=== PATIENT | male | born 1940 | race Caucasian/White ===

== ENCOUNTER → 2016-12-09 | Day surgery (SDC) | payer OTHER ==
[~2016-12-09] VITALS: Ht 170.2 cm; Wt 116.0 kg
[~2016-12-09] MED LIST: ACETAMINOPHEN 325 MG TAB PO PRN; ASPI81TA28 PO; ATOR-24 PO; ATROPINE SULFATE 0.1 MG/ML 5ML SYR IV PRN; CYCL10TA6 PO; DC ALL ANTICOAGULANTS ONE; ELAVIL 25 MG PO; FENO134C2 PO; FENTANYL CITRATE INJ 50 MCG/1 ML 2 ML VIAL ONE; FINA5TAB PO; FLUT0.15 NAE; GABA-113 PO; GLC/500 PO; GLYB5TAB8 PO; HEPARIN SOD (PORCINE) 1000 UNIT/ML 10 ML VIAL ONE; LEVO75TA5 PO; MAGN400T6 PO; MELO7.5T5 PO; METO50TA7 PO; MIDAZOLAM HCL 1 MG/ML 2ML VIAL ONE; NITROGLYCERIN/D5W 100MCG/ML 20ML SYR ONE; NiCARDipine HCL INJ 2.5 MG/ML 10 ML AMP ONE; ONDANSETRON INJ 2 MG/ML 2 ML VIAL IV PRN; OXYC1TAB3 PO; PATIENT'S ALLERGY INFO NEEDS ENTERED SCH; PRLSR20 PO; SENN-61 PO; SODIUM CHLORIDE 0.9% 1000ML 1,000 ML IV SCH; SODIUM CHLORIDE 0.9% 1000ML 250 ML IV PRN
[2016-12-09 07:17] VITALS: Ht 170.2 cm; Wt 116.0 kg
[2016-12-09 07:19] VITALS: BP 169/95; PULSE 79; TEMP 36.5; O2SAT 98
[2016-12-09 07:49] LABS: HEMATOCRIT 36.1 % (42-52); MEAN CELL VOLUME 106.8 fL (80-100); MEAN CORPUSCULAR HEMOGLOBIN 35.2 pg (25-34); RED BLOOD COUNT 3.38 M/uL (4.7-6.1); WHITE BLOOD COUNT 4.39 K/uL (4.8-10.8)
[2016-12-09 07:57] LABS: INR 1.1 (0.9-1.1); PROTHROMBIN TIME (PATIENT) 11.8 SECONDS (9.0-12.0)
[2016-12-09 08:02] LABS: BUN/CREATININE RATIO 26.7 (10-20); CALCIUM 9.2 mg/dl (8.5-10.1); CREATININE 0.92 mg/dl (0.60-1.40)
[2016-12-09 08:10] LABS: PLATELET COUNT 134 K/uL (130-400)
[2016-12-09 08:15] LABS: PLT ESTIMATE NORMAL
--- NOTE | 2016-12-09 09:26 | History & Physical Bridge Note ---
H&P Re-Evaluation Bridge Note: I have examined the patient, reviewed the History & Physical and in the interval since the performance of the History & Physical I have noted the following changes of clinical significance: No changes noted
--- NOTE | 2016-12-09 09:31 | Cardiac Catheterization ---
Procedure Note Procedure Date Dec 09, 2016. 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 Normal LV function. 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 ACC Data Cardiac Status Clinical evaluation leading to the procedure CAD Presntation: No Sxs, no angina, Positive Stress Test Anginal Classification: No symptoms Cardiogenic Shock w/in 24Hrs: No Cardiac Arrest w/in 24Hrs: No Imaging studies past 6 months: Yes Stress studies past 6 months: Yes Standard Exercise Stress Test: No Stress Echocardiogram: No Stress Testing w/SPECT MPI: Yes - Positive Cardiac CTA: No Coronary Anatomy Dominant: Left Left Main (% Stenosis): Normal LAD (% Stenosis): Normal Circumflex (% Stenosis): Normal RCA (% Stenosis): Normal Left Ventricular Angiography EF (%): 55 Mitral Regurgitation: None Diagnostic Status: Elective Closure Device Percutaneous Entry Location: Femoral Closure Device: Mynx Recommendations: management recommendations (Cleared for orthopedic surgery)
--- NOTE | 2016-12-09 09:42 | Discharge Instructions ---
Discharge Instructions Procedure Procedure Date: Dec 09, 2016. Reason for Visit: Abnormal Stress Test Aida To Do. Discharge Discharge Date: Dec 09, 2016. Discharge Diagnosis: Normal Cath Last Recorded Wt (Kilograms): 116 Anesthesia Post Anesthesia Instructions: If you have had General Anesthesia or IV Sedation: * Do not drive today. * Resume driving when surgeon permits. * Do not make important decisions or sign legal documents today. * Call surgeon for: 1. Temperature elevations greater than 101 degrees F. 2. Uncontrollable pain. 3. Excessive bleeding. 4. Persistent nausea and vomiting. 5. Medication intolerance (nausea, vomiting or rash). * For nausea and vomiting use only clear liquids such as: tea, soda, bouillon until nausea subsides, then gradually increase diet as tolerated. * If you have any concerns or questions, call your surgeon's office. If physician is unavailable and it is an emergency, call 911 or go to the nearest emergency room. Instructions Activity Recommendations: limitations Recommended Home Diet: resume previous diet Provider Instructions ACTIVITY RECOMMENDATIONS: It is common to feel weak and fatigue for a few days. * Do not drive or operate any motorized equipment for the next three days. * Limit stair usage (2 or 3 trips a day only) for the next three days. * Do not lift anything heavier than 10 pounds for the next three days. * Do not engage in vigorous exercise or any sports for the next five days. * You may shower the day after your procedure, but do not immerse the area for three days. Cleanse the site gently with soap and water. SPECIAL CARE INSTRUCTIONS: * You may replace the pressure dressing or band-aid the morning after the procedure. * After your procedure, it is normal to have a small bruise or small lump at the site. Examine your site daily for any change in the bruise or lump, redness, swelling, drainage or numbness. Notify your doctor if any change. BLEEDING: * If there is a small amount of bleeding at the site, lie down and apply firm pressure with a clean cloth for ten minutes. When the bleeding stops, lie quietly keeping the procedure limb straight for six hours. Notify your doctor as soon as possible. * If the bleeding does not stop after ten minutes or if there is a large amount of bleeding or spurting, call 911 immediately. Continue to lie down and hold firm pressure until help arrives. SKIN IRRITATION: * You may experience some redness and/or swelling in the area where radiation was administered. If any skin irritation occurs, please contact your family physician. FOLLOW UP VISIT: Keep any scheduled doctor appointments. Follow Up Follow-up with: Dr. Beard as scheduled Christophe Rogers Recommendations: Call your doctor if: * Temperature above 101 degrees * Pain not relieved by pain medicine ordered * There is increased drainage or redness from any incision * You have any unanswered questions or concerns. Your Doctors Instructions noted above were prepared by provider Govind Parra. Patient Signature Section: Patient Instructions Signature Page Zebubeth Garzon Patient (or Guardian) Signature/Date: I have read and understand the instructions given to me by my caregivers. Caregiver/RN/Doctor Signature/Date: The above-named patient and/or guardian has received patient instructions on this date. + Original Patient Signature Page (only) stays with chart. Please make copy for patient.
--- NOTE | 2016-12-09 11:03 | CARDIAC CATH REPORT ---
PROCEDURES: 1. Left heart catheterization. 2. Coronary angiography. 3. Left ventriculography. HISTORY OF PRESENT ILLNESS: This is a 76-year-old male patient who was evaluated for preoperative clearance regarding total knee replacement. The patient had preoperative testing including an echocardiogram and pharmacologic nuclear stress test. 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 It was decided that he would be best evaluated with the cardiac catheterization. PROCEDURE SUMMARY: After informed consent was obtained, the patient was taken to the cardiac catheterization lab, where he was prepped and draped in the usual manner. A right transradial approach was attempted; however, access of the artery could not be obtained. We then switched to a right transfemoral approach and successfully gained access to the artery, where the heart catheterization was completed. Preformed 5-[place] diagnostic catheter was utilized for the coronary angiograms. A 5-[place] Citizen pigtail catheter was utilized to try to cross the aortic valve and to perform a left ventriculogram; however, the pigtail catheter would not cross the valve and therefore, multipurpose catheter was utilized to cross the valve and to perform pressure measurements as well as left ventriculogram. 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 CORONARY ANGIOGRAPHY: Left coronary system is hyperdominant. The left main trunk is smooth in appearance, widely patent, and within normal limits. The LAD gives off 2 high diagonal branches. The LAD system is widely patent. The left circumflex artery is large and hyperdominant supplying the posterior septum. The left circumflex artery is widely patent. The right coronary artery is small and nondominant. The right coronary artery is widely patent. LEFT VENTRICULOGRAM: Due to utilizing a multipurpose catheter, the left ventricle was minimally filled with dye, but it appears that overall left ventricular systolic function is preserved. SUMMARY: The patient has widely patent and normal coronary anatomy. A limited left ventriculogram suggest normal LV function. RECOMMENDATIONS: The patient may proceed to surgery with an acceptable low risk of cardiovascular event. He should have followup with our cardiology group for further evaluation of his ejection fraction in the future.
[2016-12-09 13:15] VITALS: BP 142/88; PULSE 84; O2SAT 97
== END | disposition home or self-care (01) ==
LOC: C.CATH 06:57
PROVIDERS: ATTEND Internal Medicine Interventional Cardiology
DX: R94.39 Abnormal result of other cardiovascular function study (principal); E78.5 Hyperlipidemia, unspecified; E11.9 Type 2 diabetes mellitus without complications; I10 Essential (primary) hypertension; I51.9 Heart disease, unspecified; R06.09 Other forms of dyspnea; Z01.810 Encounter for preprocedural cardiovascular examination; Z90.49 Acquired absence of other specified parts of digestive tract; Z96.652 Presence of left artificial knee joint; Z90.89 Acquired absence of other organs; Z98.890 Other specified postprocedural states; Z82.49 Family history of ischemic heart disease and other diseases of the circulatory system; Z83.3 Family history of diabetes mellitus; Z80.0 Family history of malignant neoplasm of digestive organs

== ENCOUNTER 2019-01-28 18:57 | Inpatient (IN) ==
[2019-01-28] MEDS ORDERED: SODIUM CHLORIDE 0.9% 1000ML 1,000 ML IV ONE ×3 (19:23→21:13)
[2019-01-28] MEDS ORDERED: ACETAMINOPHEN 325 MG TAB PO STA (19:23)
[2019-01-28 19:50] LABS: Mean Corpuscular Hgb Conc 33.3 g/dL (32-36); Nucleated RBC # (auto) 0.47 K/uL (0-0); Nucleated RBC % (auto) 1.6 %
[2019-01-28 19:54] LABS: iSTAT Hemoglobin 7.8 g/dl (14.0-18.0); iSTAT Ionized Calcium 1.23 mmol/l (1.12-1.32); iSTAT Potassium 3.7 mEq/L (3.3-5.0)
[2019-01-28 20:03] LABS: INR 1.5 (0.9-1.1); Partial Thromboplastin Ratio 1.1; Partial Thromboplastin Time 29.7 Seconds (21.0-31.0); Prothrombin Time 14.5 Seconds (9.0-12.0)
--- NOTE | 2019-01-28 20:05 | XRay Report ---
XR chest 1V portable CLINICAL HISTORY: Sepsis. COMPARISON STUDY: No previous studies for comparison. FINDINGS: Surgical clips project over the lower neck/upper mediastinum. Note is made of moderate card iomegaly without evidence for pulmonary edema. There is no consolidation to suggest pneumonia. There is a possible hiatal hernia. Mild upper mediastinal fullness is probably due to vessels. Linear right midlung opacity suggests atelectasis IMPRESSION: 1. No acute cardiopulmonary findings. 2. Moderate cardiomegaly. 3. Possible hiatal hernia. Electronically signed by: Patrice Wilburn M.D. 01/28/2019 8:03 PM
[2019-01-28 20:07] LABS: Albumin Level 2.6 gm/dl (3.4-5.0); BUN Creatinine Ratio 11.7 (10-20); Calcium 8.9 mg/dl (8.5-10.1); Est GFR (African American) 74.7; Est GFR (Non-African American) 64.4; Potassium 3.7 mmol/L (3.5-5.1)
[2019-01-28 20:10] LABS: Albumin Globulin Ratio 0.5 (0.9-2); Bilirubin,Total 0.5 mg/dl (0.2-1); Globulin 5.1 gm/dl (2.5-4.0); Total Protein 7.7 gm/dl (6.4-8.2)
[2019-01-28 20:36] LABS: Appearance Urine Clear (Clear); Bacteria Urine Automated Negative (Negative); Bilirubin Urine Negative (Negative); Blood Urine 3+ (Negative); Color Urine Dark Yellow; Glucose Urine UA Negative (Negative); Ketones Urine Negative (Negative); Leukocyte Esterase Urine Negative (Negative); Nitrite Urine Negative (Negative); Protein Urine Negative (Negative); RBC Urine Automated >30 /hpf (0-4); Specific Gravity Urine 1.023 (1.000-1.030); Urobilinogen Urine Negative (Negative)
[2019-01-28 20:50] LABS: Hematocrit (blood only) 24.9 % (42-52); Hemoglobin 8.3 g/dL (14.0-18.0); Mean Corpuscular Volume 85.6 fL (80-100); Platelet Count 75 K/uL (130-400); RDW Coefficient of Variation 16.5 % (11.5-14.5); RDW Standard Deviation 51.6 fL (36.4-46.3); Red Blood Count 2.91 M/uL (4.7-6.1); White Blood Count 29.86 K/uL (4.8-10.8)
[2019-01-28] MEDS ORDERED: PIPERACILLIN/TAZOBACTAM 4.5 GM/120 ML BAG IV ONE (21:05)
[2019-01-28] MEDS ORDERED: PIPERACILL/TAZOBAC CONSULT ACTIVE PRN (21:05)
[2019-01-28] MEDS ORDERED: VANCOMYCIN CONSULT ACTIVE PRN (21:13)
[2019-01-28] MEDS ORDERED: VANCOMYCIN HCL 2,750 MG in SODIUM CHLORIDE 0.9% 500 ML IV ONE (21:13)
[2019-01-28 21:20] LABS: ALC (manual) 12.42 K/uL (1.2-3.4); Blast # (manual) 1.85 K/uL (0-0); Blast Cells % (manual) 6.2 %; Dohle Bodies 1+; Giant Platelets 1+; Lymphocytes # (manual) 12.42 K/uL (1.2-3.4); Lymphocytes % (manual) 41.6 %; Metamyelocytes # (manual) 0.27 K/uL (0-0); Metamyelocytes % (manual) 0.9 %; Monocytes # (manual) 4.48 K/uL (0.11-0.59); Neutrophils % (manual) 36.3 %
--- NOTE | 2019-01-28 21:24 | CT Scan Report ---
CT OF THE ABDOMEN AND PELVIS WITH CONTRAST CLINICAL HISTORY: Abdominal pain and fever. COMPARISON STUDY: None. TECHNIQUE: Following IV administration of 94 mL of Optiray-320, axial images of the abdomen and pelvi s were obtained from the lung bases to the proximal femurs. Images were reviewed in the axial, sagitt al, and coronal planes. IV contrast was administered without complication. Automated exposure contro l was utilized for the study. A dose lowering technique was utilized adhering to the principles of A ANGEL. CT DOSE: 1470.84 mGy.cm FINDINGS: Visualized portions of the lower chest demonstrate a trace left pleural effusion. There is a small pericardial effusion. A small hiatal hernia is noted. There is no biliary ductal dilatation s tatus post cholecystectomy. There is apparent wall thickening of the common bile duct with infiltrati on within the michael hepatis. The spleen is moderately enlarged. A 4 cm subcapsular wedge-shaped hypod ensity suggests a splenic infarct. There is trace perisplenic ascites. The adrenal glands and pancrea s are unremarkable. There is no pancreatic ductal dilatation. Note is made of a 4.1 x 3.9 cm solid-ap pearing mass within the lower pole of the left kidney. There is a suspected subcentimeter cyst arisin g from the upper pole of the right kidney. There is no evidence for a bowel obstruction. An enlarged left external iliac lymph node measures 5.4 x 3.5 cm. There is adjacent infiltration. There is a mild ly enlarged right external iliac lymph node. Prominent left inguinal lymph nodes are noted. Raya bal loon is within the prostate. There is increased density of visualized skeletal structures. Note is ma de of irregularity of the inferior endplate of T12 and superior endplate of L1 with erosions. There i s a probable associated 2 x 1.6 x 1.1 cm peripherally enhancing fluid collection within the right ant erior epidural space. This may reflect an epidural abscess. Multilevel degenerative changes within agustina mbar spine are noted. These are most throughout the L4-L5. Note is also made of a gas and fluid conta ining right paracentral abnormality at the L3-L4 level. No pneumatosis, free air or portal venous gas is present. IMPRESSION: 1. Endplate irregularity with erosions centered on the T12-L1 disc. This raises the possibility of os teomyelitis/discitis. 2 cm rim-enhancing fluid collection within the right anterior epidural space at this level may reflect an epidural abscess. An MRI of the lumbar spine with and without contrast to include the lower thoracic spine is recommended. Discussed with Dr. Cross at time of dictation. 2. Gas and fluid containing right paracentral abnormality at the L3-L4 level which may reflect a disc herniation or additional abscess. This can be assessed at time of MRI. Severe multilevel degenerativ e changes within the lumbar spine. 3. Small pericardial effusion. Trace left pleural effusion. 4. 4 cm lesion arising from the lower pole of the left kidney suggestive of renal cell carcinoma. A h yperdense cyst could appear similar but is considered less likely. This could likely be confirmed wit h renal ultrasound. 5. Enlarged bilateral iliac lymph nodes, including a 5.4 x 3.5 cm left external iliac node. These are nonspecific given adjacent infiltration and may be reactive however the size of this lymph node rais es the possibility of a lymphoproliferative process or metastatic disease. 6. 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 7. Raya balloon inflated within the prostate. The Raya should be repositioned. 8. Apparent wall thickening of the common bile duct with adjacent infiltration. The findings could be correlated with liver function tests to exclude cholangitis. 9. Increased density of visualized skeletal structures, a nonspecific finding. Electronically signed by: Patrice Wilburn M.D. 01/28/2019 9:22 PM
--- NOTE | 2019-01-28 23:56 | Emergency Department Note ---
Entered by Batsheva Celeste acting as a scribe for Dean Cross DO History of Present Illness General Chief complaint: Fever Stated complaint: FEVER, SWEATING, CHILLS, SEPSIS DX ON 01/14 Source: patient History of Present Illness Provider complaint: fever Onset (ago): day(s) (several ) Location: head Radiation: non-radiation Pain Consistency: + intermittent Maximum Pain Intensity: 5 Associated symptoms: + fever/chills (+chills), + nausea/vomiting and + other (+burning during urination, +abdominal pain) Treatments prior to arrival: other (Tylenol) The patient is a 79 year old male who presents to the Emergency Room with complaints of intermittent fever. He states that he has had a fever above 100.4 degrees that has been on and off for the past several days. He states that he has been having chills, nausea, and vomiting. The patient states that he has had lower abdominal pain that started yesterday The patient notes that he has been experiencing burning during urination, but denies any pain during urination. The patients states that he has bone marrow cancer and is not currently on chemotherapy. She states that he got his last shot on . The patient states that he has been urinating less frequently and his last bowel movement was this morning. The patient notes that he had Tylenol this morning. Home Medications Home Medications Medication Instructions Recorded Confirmed Type albuterol sulfate [ProAir HFA] 2 puff INHALATION Q4 PRN 01/28/19 01/28/19 History amitriptyline 25 mg PO HS 01/28/19 01/28/19 History amlodipine 10 mg PO DAILY 01/28/19 01/28/19 History atorvastatin 40 mg PO DAILY 01/28/19 01/28/19 History azacitidine [Vidaza] 75 mg SUBCUT UD 01/28/19 01/28/19 History budesonide 2 spray INTRANASAL QAM 01/28/19 01/28/19 History cyanocobalamin (vitamin B-12) 1,000 mcg PO DAILY 01/28/19 01/28/19 History [Vitamin B-12] cyclobenzaprine 10 mg PO TID PRN 01/28/19 01/28/19 History fenofibrate micronized 134 mg PO DAILY 01/28/19 01/28/19 History finasteride 5 mg PO DAILY 01/28/19 01/28/19 History furosemide [Lasix] 20 mg PO QAM 01/28/19 01/28/19 History gabapentin 300 mg PO TID 01/28/19 01/28/19 History glyburide 5 mg PO QDB 01/28/19 01/28/19 History levofloxacin 750 mg PO DAILY 01/28/19 01/28/19 History levothyroxine 100 mcg PO DAILY 01/28/19 01/28/19 History magnesium oxide 400 mg PO DAILY 01/28/19 01/28/19 History metformin 500 mg PO BIDM 01/28/19 01/28/19 History metoprolol succinate 50 mg PO HS 01/28/19 01/28/19 History metoprolol succinate 100 mg PO QAM 01/28/19 01/28/19 History omeprazole 20 mg PO TID 01/28/19 01/28/19 History ondansetron HCl [Zofran] 8 mg PO Q8 PRN 01/28/19 01/28/19 History oxycodone 5 mg PO Q6 PRN 01/28/19 01/28/19 History oxycodone 15 mg PO Q12H PRN 01/28/19 01/28/19 History potassium chloride 10 meq PO DAILY 01/28/19 01/28/19 History prochlorperazine maleate 10 mg PO TID PRN 01/28/19 01/28/19 History sennosides [senna] 17.2 mg PO QPM PRN 01/28/19 01/28/19 History sertraline 100 mg PO DAILY 01/28/19 01/28/19 History tamsulosin [Flomax] 0.8 mg PO DAILY 01/28/19 01/28/19 History Allergies Allergy/AdvReac Type Severity Reaction Status Date / Time No Known Allergies Allergy Verified 01/28/19 20:30 Past Med/Surg History Medical History Hyperlipidemia BPH (benign prostatic hyperplasia) Type II diabetes mellitus GERD (gastroesophageal reflux disease) Hyperthyroidism Social History Feels Safe at Home: Yes Smoking Status: Former smoker Review of Systems See HPI for pertinent positives & negatives. and A total of 10 systems reviewed and were otherwise negative Physical Exam Vital Signs Vital Signs - 24 hr 01/28/19 19:06 01/28/19 20:07 01/28/19 20:09 Temperature 39.2 C H Temperature Source Oral Sepsis Recent Fever Within 48 Hours Yes Sepsis New/Unexplained Change in Mental Status No Sepsis Action Taken by Nursing No Action Required Pulse Rate 71 109 H 115 H Pulse Rate [Left Apical] Pulse Rate from SpO2 Sensor 117 H 116 H Respiratory Rate 19 29 H 27 H Respiratory Effort / Characteristics Non-Labored Spontaneous Respiratory Depth Normal Respiratory Pattern Regular Blood Pressure 136/75 114/80 Blood Pressure [Left Arm] Blood Pressure Mean 95 91 Blood Pressure Mean [Left Arm] Blood Pressure Position Sitting Blood Pressure Position [Left Arm] Pulse Oximetry 97 91 92 Oxygen Delivery Method Room Air Oxygen Flow Rate 01/28/19 20:12 01/28/19 20:30 01/28/19 20:56 Temperature Temperature Source Sepsis Recent Fever Within 48 Hours Sepsis New/Unexplained Change in Mental Status Sepsis Action Taken by Nursing Pulse Rate 110 H Pulse Rate [Left Apical] 107 H Pulse Rate from SpO2 Sensor 112 H Respiratory Rate 28 H 18 Respiratory Effort / Characteristics Respiratory Depth Respiratory Pattern Blood Pressure Blood Pressure [Left Arm] 96/61 L Blood Pressure Mean Blood Pressure Mean [Left Arm] 72 Blood Pressure Position Blood Pressure Position [Left Arm] Pulse Oximetry 92 93 91 Oxygen Delivery Method Room Air Room Air Oxygen Flow Rate 01/28/19 21:00 01/28/19 21:01 01/28/19 21:04 Temperature 38.0 C H Temperature Source Oral Sepsis Recent Fever Within 48 Hours Sepsis New/Unexplained Change in Mental Status Sepsis Action Taken by Nursing Pulse Rate Pulse Rate [Left Apical] Pulse Rate from SpO2 Sensor 111 H 111 H Respiratory Rate 22 Respiratory Effort / Characteristics Respiratory Depth Respiratory Pattern Blood Pressure 122/85 Blood Pressure [Left Arm] Blood Pressure Mean 97 Blood Pressure Mean [Left Arm] Blood Pressure Position Blood Pressure Position [Left Arm] Pulse Oximetry 91 87 L 92 Oxygen Delivery Method Room Air Oxygen Flow Rate 01/28/19 21:20 01/28/19 21:30 01/28/19 21:31 Temperature Temperature Source Sepsis Recent Fever Within 48 Hours Sepsis New/Unexplained Change in Mental Status Sepsis Action Taken by Nursing Pulse Rate 104 H 101 H Pulse Rate [Left Apical] Pulse Rate from SpO2 Sensor 106 H 102 H Respiratory Rate 23 33 H Respiratory Effort / Characteristics Respiratory Depth Respiratory Pattern Blood Pressure 106/59 L Blood Pressure [Left Arm] Blood Pressure Mean 74 Blood Pressure Mean [Left Arm] Blood Pressure Position Blood Pressure Position [Left Arm] Pulse Oximetry 94 97 95 Oxygen Delivery Method Nasal Cannula Nasal Cannula Nasal Cannula Oxygen Flow Rate 2 2 2 01/28/19 21:32 01/28/19 22:00 01/28/19 22:02 Temperature Temperature Source Sepsis Recent Fever Within 48 Hours Sepsis New/Unexplained Change in Mental Status Sepsis Action Taken by Nursing Pulse Rate 94 H 108 H 109 H Pulse Rate [Left Apical] Pulse Rate from SpO2 Sensor 102 H 109 H 102 H Respiratory Rate 35 H 28 H 23 Respiratory Effort / Characteristics Respiratory Depth Respiratory Pattern Blood Pressure Blood Pressure [Left Arm] Blood Pressure Mean Blood Pressure Mean [Left Arm] Blood Pressure Position Blood Pressure Position [Left Arm] Pulse Oximetry 96 93 94 Oxygen Delivery Method Oxygen Flow Rate 01/28/19 22:08 01/28/19 23:00 Temperature Temperature Source Sepsis Recent Fever Within 48 Hours Sepsis New/Unexplained Change in Mental Status Sepsis Action Taken by Nursing Pulse Rate 102 H Pulse Rate [Left Apical] 78 Pulse Rate from SpO2 Sensor 104 H Respiratory Rate 27 H 16 Respiratory Effort / Characteristics Non-Labored Respiratory Depth Normal Respiratory Pattern Regular Blood Pressure 117/63 Blood Pressure [Left Arm] 147/72 H Blood Pressure Mean 81 Blood Pressure Mean [Left Arm] 97 Blood Pressure Position Blood Pressure Position [Left Arm] Lying Pulse Oximetry 96 98 Oxygen Delivery Method Nasal Cannula Oxygen Flow Rate 2 GENERAL: alert, laying in bed, ill-appearing, well nourished, disheveled, non- toxic EYE EXAM: normal conjunctiva OROPHARYNX: no exudate, no erythema, lips, buccal mucosa, and tongue normal and mucous membranes are moist NECK: supple, no nuchal rigidity, no adenopathy, non-tender LUNGS: Clear to auscultation. Normal chest wall mechanics HEART: tachycardic, no murmurs, S1 normal and S2 normal ABDOMEN: abdomen soft, slightly distended, mild diffuse tenderness, normo-active bowel sounds, no masses, no rebound or guarding. BACK: Back is symmetrical on inspection no CVA tenderness. SKIN: no rashes and no bruising UPPER EXTREMITIES: upper extremities are grossly normal. LOWER EXTREMITIES: No pitting edema. NEURO EXAM: Normal sensorium, cranial nerves II-XII grossly intact, normal speech, no gross weakness of arms, no gross weakness of legs. No drift. Finger to nose intact. Gross sensation intact. Course 1912: The patient was evaluated in room A10, and a complete history and physical examination were performed. 2152: I reevaluated the patient and updated him on his results. 2204: I reviewed the patient's case with Dr. Yesenia Acharya. He will evaluate the patient for further management. Consultations Consultation #1: Dr. Yesenia Acharya Time: 22:05 Administered Medications Vancomycin HCl 2,750 mg/ (Sodium Chloride) 555 mls @ 200 mls/hr IV NOW ONE; Protocol Stop: 01/28/19 23:59 Last Admin: 01/28/19 22:09 Dose: 200 mls/hr Documented by: [id number] Discontinued Medications Acetaminophen (Tylenol) 650 mg PO NOW STA Stop: 01/28/19 19:24 Last Admin: 01/28/19 19:56 Dose: 650 mg Documented by: [id number] Sodium Chloride (Nss 1000ml) 1,000 mls @ 999 mls/hr IV .Q1H1M ONE Stop: 01/28/19 20:23 Last Infusion: 01/28/19 20:47 Dose: 0 mls/hr Documented by: [id number] Admin: 01/28/19 19:44 Dose: 999 mls/hr Documented by: [id number] Piperacillin Sod/Tazobactam Sod (Zosyn) 4.5 gm in 120 mls @ 240 mls/hr IV NOW ONE Stop: 01/28/19 21:34 Last Infusion: 01/28/19 22:01 Dose: 0 mls/hr Documented by: [id number] Admin: 01/28/19 21:18 Dose: 240 mls/hr Documented by: [id number] Sodium Chloride (Nss 1000ml) 1,000 mls @ 999 mls/hr IV .Q1H1M ONE Stop: 01/28/19 22:05 Last Infusion: 01/28/19 21:45 Dose: 0 mls/hr Documented by: [id number] Admin: 01/28/19 21:12 Dose: 999 mls/hr Documented by: [id number] Sodium Chloride (Nss 1000ml) 1,000 mls @ 999 mls/hr IV .Q1H1M ONE Stop: 01/28/19 22:13 Last Admin: 01/28/19 22:09 Dose: 999 mls/hr Documented by: [id number] Medical Decision Making Differential Diagnosis Differential diagnosis: Etiologies such as sepsis, UTI, pneumonia, metabolic, electrolyte abnormalities, cardiac sources, intracerebral event, toxicologic, neurologic, as well as others were entertained. Medical Records Attestation: I reviewed the patient's medical records. Home Medications Current Medication List: was personally reviewed by me Laboratory Data Attestation: I reviewed the patient's lab results. Result diagrams: 01/28/19 19:30 01/28/19 19:30 Lab Results 01/28/19 01/28/19 01/28/19 Range/Units 19:30 19:30 19:30 WBC 29.86 H (4.8-10.8) K/uL RBC 2.91 L (4.7-6.1) M/uL Hgb 8.3 L (14.0-18.0) g/dL POC Hgb (14.0-18.0) g/dl Hct 24.9 L (42-52) % POC Hct (42-52) % MCV 85.6 (80-100) fL MCH 28.5 (25-34) pg MCHC 33.3 (32-36) g/dL RDW Std Deviation 51.6 H (36.4-46.3) fL RDW Coeff of Saad 16.5 H (11.5-14.5) % Plt Count 75 L (130-400) K/uL Absolute Nucleated RBC 0.47 H (0-0) K/uL Nucleated RBC % (auto) 1.6 % Neutrophils % (Manual) 36.3 % Lymphocytes % (Manual) 41.6 % Monocytes % (Manual) 15.0 % Metamyelocytes % (Man) 0.9 % Blast Cells % (Manual) 6.2 % Neutrophils # (Manual) 10.84 H (1.4-6.5) K/uL Total Absolute Neuts 10.84 H (1.4-6.5) K/uL Lymphocytes # (Manual) 12.42 H (1.2-3.4) K/uL Total Abs Lymphocytes 12.42 H (1.2-3.4) K/uL Monocytes # (Manual) 4.48 H (0.11-0.59) K/uL Metamyelocytes # (Man) 0.27 H (0-0) K/uL Blast Cells # (Man) 1.85 H (0-0) K/uL Dohle Bodies 1+ Giant Platelets 1+ PT 14.5 H (9.0-12.0) Seconds INR 1.5 H (0.9-1.1) APTT 29.7 (21.0-31.0) Seconds PTT Ratio 1.1 POC Sodium (135-144) mEq/L Sodium 137 (136-145) mmol/L POC Potassium (3.3-5.0) mEq/L Potassium 3.7 (3.5-5.1) mmol/L POC Chloride (101-112) mEq/L Chloride 105 (98-107) mmol/L Carbon Dioxide 23 (21-32) mmol/L POC Total CO2 (24-31) mEq/l Anion Gap 9.0 (3-11) POC Anion Gap (16-25) mmol/L POC BUN (7-18) mg/dl BUN 13 (7-18) mg/dl Creatinine 1.10 (0.6-1.4) mg/dl POC Creatinine (0.6-1.3) mg/dl Est Cr Clr Drug Dosing 68.0 ml/min Est GFR ( Amer) 74.7 Est GFR (Non-Af Amer) 64.4 BUN/Creatinine Ratio 11.7 (10-20) Glucose 168 H (70-99) mg/dl POC Glucose (other) (70-99) mg/dl POC Lactic Acid Ron (0.90-1.70) mmol/L Calcium 8.9 (8.5-10.1) mg/dl POC Ioniz Calcium Dario (1.12-1.32) mmol/l Total Bilirubin 0.5 (0.2-1) mg/dl AST 14 L (15-37) U/L ALT 16 (12-78) U/L Alkaline Phosphatase 47 (45-117) U/L Total Protein 7.7 (6.4-8.2) gm/dl Albumin 2.6 L (3.4-5.0) gm/dl Globulin 5.1 H (2.5-4.0) gm/dl Albumin/Globulin Ratio 0.5 L (0.9-2) Urine Color Urine Appearance (Clear) Urine pH (4.5-7.5) Ur Specific [place] (1.000-1.030) Urine Protein (Negative) Urine Glucose (UA) (Negative) Urine Ketones (Negative) Urine Blood (Negative) Urine Nitrite (Negative) Urine Bilirubin (Negative) Urine Urobilinogen (Negative) Ur Leukocyte Esterase (Negative) Urine WBC (Auto) (0-5) /hpf Urine RBC (Auto) (0-4) /hpf U Hyaline Cast (Auto) (0-5) /lpf U Epithel Cells (Auto) (0-5) /lpf Urine Bacteria (Auto) (Negative) Blood Type Antibody Screen 01/28/19 01/28/19 01/28/19 Range/Units 19:37 19:42 19:54 WBC (4.8-10.8) K/uL RBC (4.7-6.1) M/uL Hgb (14.0-18.0) g/dL POC Hgb 7.8 L (14.0-18.0) g/dl Hct (42-52) % POC Hct 23 L (42-52) % MCV (80-100) fL MCH (25-34) pg MCHC (32-36) g/dL RDW Std Deviation (36.4-46.3) fL RDW Coeff of Saad (11.5-14.5) % Plt Count (130-400) K/uL Absolute Nucleated RBC (0-0) K/uL Nucleated RBC % (auto) % Neutrophils % (Manual) % Lymphocytes % (Manual) % Monocytes % (Manual) % Metamyelocytes % (Man) % Blast Cells % (Manual) % Neutrophils # (Manual) (1.4-6.5) K/uL Total Absolute Neuts (1.4-6.5) K/uL Lymphocytes # (Manual) (1.2-3.4) K/uL Total Abs Lymphocytes (1.2-3.4) K/uL Monocytes # (Manual) (0.11-0.59) K/uL Metamyelocytes # (Man) (0-0) K/uL Blast Cells # (Man) (0-0) K/uL Dohle Bodies Giant Platelets PT (9.0-12.0) Seconds INR (0.9-1.1) APTT (21.0-31.0) Seconds PTT Ratio POC Sodium 138 (135-144) mEq/L Sodium (136-145) mmol/L POC Potassium 3.7 (3.3-5.0) mEq/L Potassium (3.5-5.1) mmol/L POC Chloride 102 (101-112) mEq/L Chloride (98-107) mmol/L Carbon Dioxide (21-32) mmol/L POC Total CO2 22 L (24-31) mEq/l Anion Gap (3-11) POC Anion Gap 18.0 (16-25) mmol/L POC BUN 12 (7-18) mg/dl BUN (7-18) mg/dl Creatinine (0.6-1.4) mg/dl POC Creatinine 1.0 (0.6-1.3) mg/dl Est Cr Clr Drug Dosing ml/min Est GFR ( Amer) Est GFR (Non-Af Amer) BUN/Creatinine Ratio (10-20) Glucose (70-99) mg/dl POC Glucose (other) 175 H (70-99) mg/dl POC Lactic Acid Ron 1.05 (0.90-1.70) mmol/L Calcium (8.5-10.1) mg/dl POC Ioniz Calcium Dario 1.23 (1.12-1.32) mmol/l Total Bilirubin (0.2-1) mg/dl AST (15-37) U/L ALT (12-78) U/L Alkaline Phosphatase (45-117) U/L Total Protein (6.4-8.2) gm/dl Albumin (3.4-5.0) gm/dl Globulin (2.5-4.0) gm/dl Albumin/Globulin Ratio (0.9-2) Urine Color Urine Appearance (Clear) Urine pH (4.5-7.5) Ur Specific [place] (1.000-1.030) Urine Protein (Negative) Urine Glucose (UA) (Negative) Urine Ketones (Negative) Urine Blood (Negative) Urine Nitrite (Negative) Urine Bilirubin (Negative) Urine Urobilinogen (Negative) Ur Leukocyte Esterase (Negative) Urine WBC (Auto) (0-5) /hpf Urine RBC (Auto) (0-4) /hpf U Hyaline Cast (Auto) (0-5) /lpf U Epithel Cells (Auto) (0-5) /lpf Urine Bacteria (Auto) (Negative) Blood Type A Positive Antibody Screen NEGATIVE 01/28/19 Range/Units 20:20 WBC (4.8-10.8) K/uL RBC (4.7-6.1) M/uL Hgb (14.0-18.0) g/dL POC Hgb (14.0-18.0) g/dl Hct (42-52) % POC Hct (42-52) % MCV (80-100) fL MCH (25-34) pg MCHC (32-36) g/dL RDW Std Deviation (36.4-46.3) fL RDW Coeff of Saad (11.5-14.5) % Plt Count (130-400) K/uL Absolute Nucleated RBC (0-0) K/uL Nucleated RBC % (auto) % Neutrophils % (Manual) % Lymphocytes % (Manual) % Monocytes % (Manual) % Metamyelocytes % (Man) % Blast Cells % (Manual) % Neutrophils # (Manual) (1.4-6.5) K/uL Total Absolute Neuts (1.4-6.5) K/uL Lymphocytes # (Manual) (1.2-3.4) K/uL Total Abs Lymphocytes (1.2-3.4) K/uL Monocytes # (Manual) (0.11-0.59) K/uL Metamyelocytes # (Man) (0-0) K/uL Blast Cells # (Man) (0-0) K/uL Dohle Bodies Giant Platelets PT (9.0-12.0) Seconds INR (0.9-1.1) APTT (21.0-31.0) Seconds PTT Ratio POC Sodium (135-144) mEq/L Sodium (136-145) mmol/L POC Potassium (3.3-5.0) mEq/L Potassium (3.5-5.1) mmol/L POC Chloride (101-112) mEq/L Chloride (98-107) mmol/L Carbon Dioxide (21-32) mmol/L POC Total CO2 (24-31) mEq/l Anion Gap (3-11) POC Anion Gap (16-25) mmol/L POC BUN (7-18) mg/dl BUN (7-18) mg/dl Creatinine (0.6-1.4) mg/dl POC Creatinine (0.6-1.3) mg/dl Est Cr Clr Drug Dosing ml/min Est GFR ( Amer) Est GFR (Non-Af Amer) BUN/Creatinine Ratio (10-20) Glucose (70-99) mg/dl POC Glucose (other) (70-99) mg/dl POC Lactic Acid Ron (0.90-1.70) mmol/L Calcium (8.5-10.1) mg/dl POC Ioniz Calcium Dario (1.12-1.32) mmol/l Total Bilirubin (0.2-1) mg/dl AST (15-37) U/L ALT (12-78) U/L Alkaline Phosphatase (45-117) U/L Total Protein (6.4-8.2) gm/dl Albumin (3.4-5.0) gm/dl Globulin (2.5-4.0) gm/dl Albumin/Globulin Ratio (0.9-2) Urine Color Dark Yellow Urine Appearance Clear (Clear) Urine pH 5.0 (4.5-7.5) Ur Specific [place] 1.023 (1.000-1.030) Urine Protein Negative (Negative) Urine Glucose (UA) Negative (Negative) Urine Ketones Negative (Negative) Urine Blood 3+ H (Negative) Urine Nitrite Negative (Negative) Urine Bilirubin Negative (Negative) Urine Urobilinogen Negative (Negative) Ur Leukocyte Esterase Negative (Negative) Urine WBC (Auto) 1-5 (0-5) /hpf Urine RBC (Auto) >30 H (0-4) /hpf U Hyaline Cast (Auto) 1-5 (0-5) /lpf U Epithel Cells (Auto) 10-20 H (0-5) /lpf Urine Bacteria (Auto) Negative (Negative) Blood Type Antibody Screen Imaging Data Radiologist's Impression: Radiology results as stated below per my review and the radiologist's interpretation: XR chest 1V portable CLINICAL HISTORY: Sepsis. COMPARISON STUDY: No previous studies for comparison. FINDINGS: Surgical clips project over the lower neck/upper mediastinum. Note is made of moderate cardiomegaly without evidence for pulmonary edema. There is no consolidation to suggest pneumonia. There is a possible hiatal hernia. Mild upper mediastinal fullness is probably due to vessels. Linear right midlung opacity suggests atelectasis IMPRESSION: 1. No acute cardiopulmonary findings. 2. Moderate cardiomegaly. 3. Possible hiatal hernia. Electronically signed by: Patrice Wilburn M.D. 01/28/2019 8:[address] OF THE ABDOMEN AND PELVIS WITH CONTRAST CLINICAL HISTORY: Abdominal pain and fever. COMPARISON STUDY: None. TECHNIQUE: Following IV administration of 94 mL of Optiray-320, axial images of the abdomen and pelvis were obtained from the lung bases to the proximal femurs. Images were reviewed in the axial, sagittal, and coronal planes. IV contrast was administered without complication. Automated exposure control was utilized for the study. A dose lowering technique was utilized adhering to the principles of ALARA. CT DOSE: 1470.84 mGy.cm FINDINGS: Visualized portions of the lower chest demonstrate a trace left pleural effusion. There is a small pericardial effusion. A small hiatal hernia is noted. There is no biliary ductal dilatation status post cholecystectomy. There is apparent wall thickening of the common bile duct with infiltration within the michael hepatis. The spleen is moderately enlarged. A 4 cm subcapsular wedge-shaped hypodensity suggests a splenic infarct. There is trace perisplenic ascites. The adrenal glands and pancreas are unremarkable. There is no pancreatic ductal dilatation. Note is made of a 4.1 x 3.9 cm solid-appearing mass within the lower pole of the left kidney. There is a suspected subcentimeter cyst arising from the upper pole of the right kidney. There is no evidence for a bowel obstruction. An enlarged left external iliac lymph node measures 5.4 x 3.5 cm. There is adjacent infiltration. There is a mildly enlarged right external iliac lymph node. Prominent left inguinal lymph nodes are noted. Raya balloon is within the prostate. There is increased density of visualized skeletal structures. Note is made of irregularity of the inferior endplate of T12 and superior endplate of L1 with erosions. There is a probable associated 2 x 1.6 x 1.1 cm peripherally enhancing fluid collection within the right anterior epidural space. This may reflect an epidural abscess. Multilevel degenerative changes within lumbar spine are noted. These are most throughout the L4-L5. Note is also made of a gas and fluid containing right paracentral abnormality at the L3-L4 level. No pneumatosis, free air or portal venous gas is present. IMPRESSION: 1. Endplate irregularity with erosions centered on the T12-L1 disc. This raises the possibility of osteomyelitis/discitis. 2 cm rim-enhancing fluid collection within the right anterior epidural space at this level may reflect an epidural abscess. An MRI of the lumbar spine with and without contrast to include the lower thoracic spine is recommended. Discussed with Dr. Cross at time of dictation. 2. Gas and fluid containing right paracentral abnormality at the L3-L4 level which may reflect a disc herniation or additional abscess. This can be assessed at time of MRI. Severe multilevel degenerative changes within the lumbar spine. 3. Small pericardial effusion. Trace left pleural effusion. 4. 4 cm lesion arising from the lower pole of the left kidney suggestive of renal cell carcinoma. A hyperdense cyst could appear similar but is considered less likely. This could likely be confirmed with renal ultrasound. 5. Enlarged bilateral iliac lymph nodes, including a 5.4 x 3.5 cm left external iliac node. These are nonspecific given adjacent infiltration and may be reactive however the size of this lymph node raises the possibility of a lymphoproliferative process or metastatic disease. 6. 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 7. Raya balloon inflated within the prostate. The Raya should be repositioned. 8. Apparent wall thickening of the common bile duct with adjacent infiltration. The findings could be correlated with liver function tests to exclude cholangitis. 9. Increased density of visualized skeletal structures, a nonspecific finding. Electronically signed by: Patrice Wilburn M.D. 01/28/2019 9:22 PM ECG Data Attestation: I personally reviewed and interpreted this ECG as follows: Indication: other (fever) Rate (beats per minute): 124 Rhythm: sinus tachycardia Findings: + other (T wave flattening in AVL), + nonspecific-ST abn (lateral and anterior) and + PAC Blood Pressure Blood Pressure Findings: Normal blood pressure MDM Narrative Patient is a 79-year-old male who presents the ER for fevers which is been present for the past 2 to 3 weeks intermittently. He notes that he is now having abdominal pain. He has a history of myelodysplastic disorder and follows with heme-onc at [facility] and outside of town. Vitals were remarkable for fever and tachycardia. IV was established and blood work was obtained and showed a leukocytosis of 29,000. Hemoglobin was 8. Leukocytosis was significantly incr eased from previous month which was at 12. Platelets were significantly diminished at 75 from 200s last month. Blood did have 6% blasts. INR was at 1.5. BMP along with LFTs bilirubin was unremarkable. UA was negative although he was retaining. He was typed and screened. CT abdomen pelvis showed a questionable spinal epidural abscess with discitis and osteomyelitis. Patient was given IV vancomycin and Zosyn. He was updated bedside. Discussed with hematology oncology who was agreeable with keeping him here and monitoring blood work closely to differentiate from blast crisis versus sepsis induced leukemia. Discussed with spinal surgery and they were agreeable as well. Discussed with the hospitalist. Patient family were updated bedside. He is a DNR/DNI. Patient was also given 2 L of IV normal saline bolus on the ER. Impression & Plan Sepsis, Spinal epidural abscess, Discitis, Leukemia Critical Care Time Critical Care Time: Yes Total Critical Care Time: 35 I have personally spent 35 minutes of critical care time in the direct management of this patient. This includes bedside care, interpretation of diagnostic studies, and testing, discussion with consultants, patient, and family members, and other required patient management activities. This 35 minutes is in excess of all separately billable procedures. Discharge Plan Visit Data Chief Complaint: Fever Stated Complaint: FEVER, SWEATING, CHILLS, SEPSIS DX ON 01/14 ED Provider: Dean Cross Discharge Problem: Sepsis, Spinal epidural abscess, Discitis, Leukemia Patient Disposition: Being Evaluated by Hospitalist Forms Stand Alone Forms: My [facility] Prescriptions Prescriptions: No Action cyclobenzaprine 10 mg Tablet 10 mg PO TID PRN (Reason: Muscle Spasm) RF: 0 budesonide 32 mcg/actuation Viola,Non-Aerosol 2 spray INTRANASAL QAM RF: 0 atorvastatin 40 mg Tablet 40 mg PO DAILY RF: 0 metformin 500 mg Tablet 500 mg PO BIDM RF: 0 cyanocobalamin (vitamin B-12) [Vitamin B-12] 1,000 mcg Tablet Extended Release 1,000 mcg PO DAILY RF: 0 sennosides [senna] 8.6 mg Tablet 17.2 mg PO QPM PRN (Reason: Constipation) RF: 0 potassium chloride 10 mEq Capsule, Extended Release 10 meq PO DAILY RF: 0 glyburide 5 mg Tablet 5 mg PO QDB RF: 0 metoprolol succinate 50 mg Tablet Extended Release 24 Hr 50 mg PO HS RF: 0 metoprolol succinate 50 mg Tablet Extended Release 24 Hr 100 mg PO QAM RF: 0 ondansetron HCl [Zofran] 8 mg Tablet 8 mg PO Q8 PRN (Reason: Nausea And Vomiting) RF: 0 sertraline 100 mg Tablet 100 mg PO DAILY RF: 0 prochlorperazine maleate 10 mg Tablet 10 mg PO TID PRN (Reason: Nausea And Vomiting) RF: 0 fenofibrate micronized 134 mg Capsule 134 mg PO DAILY RF: 0 levothyroxine 100 mcg Tablet 100 mcg PO DAILY RF: 0 amitriptyline 25 mg Tablet 25 mg PO HS RF: 0 magnesium oxide 400 mg (241.3 mg magnesium) Tablet 400 mg PO DAILY RF: 0 tamsulosin [Flomax] 0.4 mg Capsule 0.8 mg PO DAILY RF: 0 amlodipine 10 mg Tablet 10 mg PO DAILY RF: 0 gabapentin 300 mg Capsule 300 mg PO TID RF: 0 furosemide [Lasix] 20 mg Tablet 20 mg PO QAM RF: 0 levofloxacin 750 mg tablet 750 mg PO DAILY RF: 0 albuterol sulfate [ProAir HFA] 90 mcg/actuation Hfa Aerosol Inhaler 2 puff INHALATION Q4 PRN (Reason: Wheezing) RF: 0 finasteride 5 mg Tablet 5 mg PO DAILY RF: 0 oxycodone 5 mg Tablet 5 mg PO Q6 PRN (Reason: Pain) RF: 0 azacitidine [Vidaza] 100 mg Recon Soln 75 mg SUBCUT UD RF: 0 omeprazole 20 mg Tablet,Delayed Release (Dr/Ec) 20 mg PO TID RF: 0 oxycodone 15 mg Tablet,Oral Only,Ext.Rel.12 Hr 15 mg PO Q12H PRN (Reason: Pain) RF: 0 Referrals Referrals: Nayeli Santillan DO [Primary Care Provider] - The scribe's documentation has been prepared under my direction and personally reviewed by me in its entirety. I confirm that the note above accurately reflects all work, treatment, procedures, and medical decision making performed by me.
[2019-01-29] MEDS ORDERED: OXYCODONE HCL 15 MG TABCR (OXYCONTIN) PO STA (00:12)
[2019-01-29] MEDS ORDERED: VANCOMYCIN HCL 1,000 MG in SODIUM CHLORIDE 0.9% 250 ML IV SCH (01:18)
[2019-01-29] MEDS ORDERED: SODIUM CHLORIDE 0.9% 1000ML 1,000 ML IV SCH (01:18)
[2019-01-29] MEDS ORDERED: ONDANSETRON INJ 2 MG/ML 2 ML VIAL IV PRN (01:18)
[2019-01-29] MEDS ORDERED: ICU PROTOCOL FOR HYPERGLYCEMIA PRN (01:18)
[2019-01-29] MEDS ORDERED: VANCOMYCIN CONSULT ACTIVE PRN (01:18)
[2019-01-29] MEDS ORDERED: CYCLOBENZAPRINE HCL 10 MG TAB PO PRN (01:18)
[2019-01-29] MEDS ORDERED: PIPERACILL/TAZOBAC CONSULT ACTIVE PRN (01:18)
[2019-01-29] MEDS ORDERED: PROCHLORPERAZINE MALEATE 10 MG TAB PO PRN (01:18)
[2019-01-29] MEDS ORDERED: NITROGLYCERIN SL 0.4 MG/TAB TAB SL PRN (01:18)
[2019-01-29] MEDS ORDERED: ONDANSETRON 4 MG OD TAB PO PRN (01:18)
[2019-01-29] MEDS ORDERED: ACETAMINOPHEN 325 MG TAB PO PRN (01:18)
[2019-01-29] MEDS ORDERED: SENNA 8.6 MG TAB PO PRN (01:18)
[2019-01-29] MEDS ORDERED: PIPERACILLIN/TAZOBACTAM 4.5 GM in DEXTROSE 5% 100 ML IV SCH (01:18)
[2019-01-29] MEDS ORDERED: POLYETHYLENE (MIRALAX) 17 GM PACK PO PRN (01:18)
[2019-01-29] MEDS ORDERED: ALBUTEROL HFA 8 GM INHALER INH PRN (01:18)
[2019-01-29] MEDS ORDERED: OXYCODONE HCL PO PRN (01:47)
[2019-01-29] MEDS ORDERED: MoRPHine SULFATE 2 MG/ML CARP IV STA ×2 (01:54→03:04)
[2019-01-29] MEDS ORDERED: MoRPHine SULFATE 2 MG/ML CARP ONE ×2 (01:56→03:05)
[2019-01-29] MEDS: OXYCODONE HCL 15 MG TABCR (OXYCONTIN) PO PRN ×2 (02:07→14:48)
--- NOTE | 2019-01-29 02:13 | Critical Care Consultation ---
Date of Consultation January 29, 2019 Assessment & Plan (1) Spinal epidural abscess: Reason Critically Ill: 79-year-old male with past medical history significant for MDS presents to the ED with multiple complaints of fever, nausea vomiting, abdominal pain, shortness of breath, lower back pain. CT shows possible spinal abscess. Neuro - [facility] ICU: Negative MDS: diagnosed with MDS approximately 2 years ago and currently follows with [facility], being treated with Vidaza and Aranesp therapy, not on chemo -Thrombocytopenia with platelets 75,000, will trend and transfuse if indicated -Chronically anemic, states patient previously unresponsive to therapies -Consult hematology oncology, will follow recs Sepsis/spinal abscess versus blast crisisfebrile with leukocytosis of 29,000 on admission with blasts 6.2%; blast crisis less likely diagnosis -CT abdomen showed possible spinal abscess with discitis and osteomyelitis, recommends MRI but patient refuses, will obtain additional CT -Gas and fluid containing paracentral abnormality at L3-L4, may be from herniation versus additional abscess, clindamycin added -Blood cultures collected and pending, lactate negative -Follow-up a.m. procalcitonin -Empiric antibiotics vancomycin, Zosyn, clindamycin -Infectious disease consulted, follow-up recs Chronic back paincontinue home regimen oxycodone Cardiac - CHFunknown EF as no prior study in system -We will continue home dose Lasix regimen as patient appears euvolemic -Maintain strict I's and O's and daily weight -Continuous monitor on telemetry Hypertensioncontinue home regimen Hyperlipidemiacontinue atorvastatin Respiratory - Dyspneacurrently on 2 L nasal cannula, maintaining saturation -Chest x-ray negative for acute process -Monitor and wean O2 as able GI - Nonspecific abdominal pain -CT of abdomen reveals splenomegaly, negative for other likely sources -Patient has history of chronic constipation, will continue bowel regimen therapy -LFTs unremarkable -We will follow-up abdominal ultrasound read RENAL/LYTES - Renal lesionspotted on left kidney with CT abdomen -Obtaining abdominal ultrasound for further work-up as recommended - BPHFoley inserted, will continue home regimen Flomax, finasteride ENDO - Diabetes type 2holding metformin and glyburide -ICU hyperglycemic protocol, sliding scale HEME - 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, H&H stable, will monitor Thrombocytopenia secondary to MDS, will monitor and transfuse as necessary ID - Vancomycin, Zosyn switched to cefepime for added CSF penetration for possible spinal epidural abscess, clindamycin added for free gas on CT from possible additional abscess -Lactate negative, follow-up procalcitonin, blood cultures pending -ID consulted, follow-up recommendations LINES/IV ACCESS - Peripheral IVs, Raya DVT PROPHYLAXIS - SCDs, hold anticoagulation for now given elevated INR and thrombocytopenia I have personally spent 35 minutes of critical care time in the direct management of this patient. This is a life/limb threatening event. This includes time spent evaluating patient, direct bedside care, chart review, placing orders, interpretation of diagnostic studies, discussion with consultants, patient, and family members, as well as other required patient management activities. This time is exclusive of all separately billable procedures, and teaching time and separate from and in addition to any other critical care service time. Thank you for allowing us to participate in the care of this patient. Please refer to my attending physician's documentation for any further recommendations. (2) Hyperlipidemia: (3) BPH (benign prostatic hyperplasia): (4) Type II diabetes mellitus: (5) GERD (gastroesophageal reflux disease): (6) Myelodysplastic syndrome: Supervising Physician Co-Signing Physician Notes I have personally evaluated and examined this patient. I agree with assessment and plan of Miguel TORRES. Patient was discussed in multidisciplinary rounds. I obtained a venous duplex is in the CTA for the new oxygen requirement given the acute hypoxic respiratory failure. Patient has been transfused blood product and we got additional imaging studies, patient is unable to tolerate an MRI. Unfortunately the patient requires irradiated blood product and more platelets than what is available at this institution should he undergo spinal surgery. The patient does not appear to have venous thromboembolism in the lower extremities or in the pulmonary vasculature via the studies obtained. I discussed the case with spinal surgery and certainly his comorbidities create complexities that we are unable to manage. The patient's family initially preferred to be transferred to [facility]. I spoke with the spinal surgeon there who felt that the patient's comorbidities presented complexities that were beyond their ability to manage effectively and suggested transfer to either [facility], [facility]. At this time the patient has opted to pursue [facility] I spoke with the neurosurgeon, Dr. Kinney who would be willing to see in consult however not the accepting physician. Discussed the case with the internal medicine service: Dr. Reyes who is willing to accept the patient to [facility]. I have personally spent 55 minutes of critical care time in the direct management of this patient. This is a life/limb threatening event. This includes time spent evaluating patient, direct bedside care, chart review, placing orders, interpretation of diagnostic studies, discussion with consultants, patient, and/or family members regarding treatment decisions, as well as other required patient management activities. This time is exclusive of all separately billable procedures, and teaching time and separate from and in addition to any other critical care service time. History of Present Illness Attending Physician: Calixto Godfrey MD History of Present Illness Patient is a 79-year-old male with history significant for MDS which he follows with heme-onc at [facility] and is currently being treated with Vidaza and Aranesp therapy, not undergoing chemo. Additional past medical history includes chronic back pain, diabetes type 2, hypertension, hyperlipidemia, GERD, BPH. Patient initially presented to the emergency department with complaints of fevers and chills for several days and associated nausea and vomiting. He also complained of abdominal pain that started yesterday. In the ED he was tachycardic and febrile. CBC showed leukocytosis 29,000. CT abdomen showed possible spinal abscess with discitis and osteomyelitis. Blood cultures were obtained and started on antibiotic therapy. On arrival to the ICU, patient is cooperative and alert and oriented but appears restless and complains of shortness of breath and bilateral lower quadrant abdominal pain, and lower back pain which he states is chronic. He denies headache, neck stiffness, palpitations, syncope, changes in neurological status. Patient is a poor historian but states that his manages his health in his stead. Patient's was present at the bedside and able to deliver detailed medical history. Patient is currently hemodynamically stable without the use of vasopressors, afebrile on arrival, maintains oxygen saturation on nasal cannula. Patient may remain in ICU overnight for observation and clinical management. Allergies Allergy/AdvReac Type Severity Reaction Status Date / Time No Known Allergies Allergy Verified 01/28/19 20:30 Home Medications Home Medications Medication Instructions Recorded Confirmed Type albuterol sulfate [ProAir HFA] 2 puff INHALATION Q4 PRN 01/28/19 01/28/19 History amitriptyline 25 mg PO HS 01/28/19 01/28/19 History amlodipine 10 mg PO DAILY 01/28/19 01/28/19 History atorvastatin 40 mg PO DAILY 01/28/19 01/28/19 History azacitidine [Vidaza] 75 mg SUBCUT UD 01/28/19 01/28/19 History budesonide 2 spray INTRANASAL QAM 01/28/19 01/28/19 History cyanocobalamin (vitamin B-12) 1,000 mcg PO DAILY 01/28/19 01/28/19 History [Vitamin B-12] cyclobenzaprine 10 mg PO TID PRN 01/28/19 01/28/19 History fenofibrate micronized 134 mg PO DAILY 01/28/19 01/28/19 History finasteride 5 mg PO DAILY 01/28/19 01/28/19 History furosemide [Lasix] 20 mg PO QAM 01/28/19 01/28/19 History gabapentin 300 mg PO TID 01/28/19 01/28/19 History glyburide 5 mg PO QDB 01/28/19 01/28/19 History levofloxacin 750 mg PO DAILY 01/28/19 01/28/19 History levothyroxine 100 mcg PO DAILY 01/28/19 01/28/19 History magnesium oxide 400 mg PO DAILY 01/28/19 01/28/19 History metformin 500 mg PO BIDM 01/28/19 01/28/19 History metoprolol succinate 50 mg PO HS 01/28/19 01/28/19 History metoprolol succinate 100 mg PO QAM 01/28/19 01/28/19 History omeprazole 20 mg PO TID 01/28/19 01/28/19 History ondansetron HCl [Zofran] 8 mg PO Q8 PRN 01/28/19 01/28/19 History oxycodone 5 mg PO Q6 PRN 01/28/19 01/28/19 History oxycodone 15 mg PO Q12H PRN 01/28/19 01/28/19 History potassium chloride 10 meq PO DAILY 01/28/19 01/28/19 History prochlorperazine maleate 10 mg PO TID PRN 01/28/19 01/28/19 History sennosides [senna] 17.2 mg PO QPM PRN 01/28/19 01/28/19 History sertraline 100 mg PO DAILY 01/28/19 01/28/19 History tamsulosin [Flomax] 0.8 mg PO DAILY 01/28/19 01/28/19 History Patient History Medical History Hyperlipidemia BPH (benign prostatic hyperplasia) Type II diabetes mellitus GERD (gastroesophageal reflux disease) Primary cancer of bone marrow Hyperthyroidism Social History Preferred Language: Latvian Communication Ability: Effective Parimutuel Clerk Required: No Beliefs That Will Affect Care: None Current Living Situation: Family Other Information That Helps Us Care for You: No Feels Safe at Home: Yes Safety Concerns: Feels Safe At This Time Smoking Status: Unknown if ever smoked Hx Alcohol Use: No Hx Substance Use: No Review of Systems Review of Systems: All systems reviewed & are unremarkable except as noted in HPI & below Physical Exam Eyes: PERRL, conjunctivae normal, anicteric sclerae ENMT: external ear and nose normal, oropharynx normal Neck: trachea midline, no thyromegaly Respiratory: normal respiratory effort, lungs clear to auscultation Cardiovascular: RRR, no murmur, no edema Rate/Rhythm: regular rhythm and + tachycardic Heart Sounds: normal S1 and normal S2 Vessels: no JVD Gastrointestinal (Abdomen): Abdomen obese, soft, tender on palpation and lower quadrants bilaterally. Bowel sounds auscultated in all 4 quadrants Neurologic: PERRL, EOMI, accommodation nl, no face palsy, no dysarthria No loss of sensation in lower extremities, and movement symmetrical bilaterally with normal strength Psychiatric: Orientation: cooperative Mood: + anxious mood Genitourinary: Raya inserted Results & Data Vital Signs (Past 12 Hours) Vital Signs Temp Pulse Pulse Resp BP BP Pulse Ox 01/29/19 01:10 37.2 C 110 H 20 127/72 96 01/28/19 23:00 78 16 147/72 H 98 01/28/19 22:08 102 H 27 H 117/63 96 01/28/19 22:02 109 H 23 94 01/28/19 22:00 108 H 28 H 93 01/28/19 21:32 94 H 35 H 96 01/28/19 21:31 101 H 33 H 106/59 L 95 01/28/19 21:30 104 H 23 97 01/28/19 21:20 94 01/28/19 21:04 38.0 C H 22 92 01/28/19 21:01 122/85 87 L 01/28/19 21:00 91 01/28/19 20:56 107 H 18 96/61 L 91 01/28/19 20:30 110 H 28 H 93 01/28/19 20:12 92 01/28/19 20:09 115 H 27 H 92 01/28/19 20:07 109 H 29 H 114/80 91 01/28/19 19:06 39.2 C H 71 19 136/75 97 PG Care Time/CCT Critical Care Time: Yes Total Critical Care Time: 60
[2019-01-29] MEDS: OXYCODONE HCL IR 5 MG TAB (IMMEDIATE RELEASE) PO PRN ×2 (03:07→10:36)
--- NOTE | 2019-01-29 04:06 | History and Physical Report ---
DATE OF ADMISSION: 01/29/2019 CHIEF COMPLAINT: Fever. HISTORY OF PRESENT ILLNESS: This is a 79-year-old male with past medical history significant for diabetes type 2, hyperlipidemia, hypothyroidism, obstructive sleep apnea, ascending aortic dilatation, hypertension, GERD, BPH with urinary retention, depression, myelodysplastic syndrome, presents with fever. The patient has myelodysplastic syndrome diagnosed around a couple of years ago and follows with Dr. Rasheed at [facility] in [facility], currently getting Vidaza shots 4 times a week 1 an 3 times 2nd week and couple of weeks off. Also checks cbc couple of times a week and is almost getting the prbc transfusion every Tuesday. Gets transfused for hemoglobin less than 7.5. Got transfused last Tuesday. Last Tuesday he went to [facility] with fever and got admitted and next day got discharged on Levaquin. Was given 5 days of Levaquin and finished the course, but is still having high fevers at home. He was profusely sweating, feeling weak and tired. Generally walks with a walker, but is not ambulating much. Appetite is down. Complaining of right hip pain, so he was brought here. His white count is elevated to 28,[address] of abdomen and pelvis is showing possible discitis or small epidural abscess at T12 and L1 and L3 and L4 levels. His lactic acid is fine and the ER physician talked to the oncologist production support manager and thought elevated white count and blast cells was most likely from sepsis and infection, and can be monitored here. Spine Surgery has also been notified. The patient is resting comfortably, currently hemodynamics are okay. Denies any headache, no blurred vision, no earache, no sore throat, no difficulty swallowing. No cough, no nausea, no chest pain. He is somewhat short of breath, no nausea. He is also having issues with urinary retention. There is a plan to teach him about self catheterization. Raya was placed in the ER. His abdominal discomfort has improved since placed on Raya. Denies any hematuria. He moves his bowels daily. No blood in the stools or black stools. No swelling in the legs. No rash. ALLERGIES: No known drug allergies. PAST MEDICAL HISTORY: As mentioned above. PAST SURGICAL HISTORY: Bilateral knee arthroplasty, colonoscopy, exploration of parathyroid glands, thyroid surgery, lumbar disc surgery in 1990, TURP, repair of thigh muscles right side with repair of the ruptured rotator cuff. MEDICATIONS: The patient is on OxyContin 50 mg p.o. b.i.d., Lipitor 20 mg p.o. daily, fenofibrate 134 mcg daily, metformin 500 mg p.o. b.i.d., Zoloft 100 mg p.o. daily, Flomax 0.8 mg p.o. daily, amitriptyline 25 mg p.o. at bedtime, Toprol-XL 100 mg in a.m. and 50 mg in p.m., Aricept as directed, Proscar 5 mg p.o. daily, Rhinoset administered 2 sprays into each nostril daily, gabapentin 300 mg p.o. t.i.d., Levothyroxine 100 mcg p.o. daily, cyclobenzaprine 10 mg p.o. t.i.d. p.r.n., Vidaza 75 mg 4 times a week 3 times second week and off for 2 weeks, Lasix 20 mg daily, oxycodone 4 mg p.o. q.i.d. p.r.n., potassium chloride 10 mEq p.o. daily, amlodipine 10 mg p.o. daily, omeprazole 20 mg p.o. b.i.d., glyburide 5 mg p.o. daily, magnesium oxide 400 mg p.o. daily, Compazine 10 mg p.o. q. 6 hours p.r.n., vitamin B12 1000 mcg daily, albuterol 2 puffs every 4 hours p.r.n., Zofran 8 mg p.o. t.i.d. p.r.n., and Senokot 2 tablets b.i.d. p.r.n. FAMILY HISTORY: Significant for mother had diabetes, UT, hypertension. Sister has pancreatic cancer. Brother has heart disorder. Sister has UT. SOCIAL HISTORY: and lives with his . Former smoker, quit in 2006. No alcohol use, no drug use. REVIEW OF SYMPTOMS: As per HPI. Rest of review of symptoms negative. PHYSICAL EXAMINATION: GENERAL: The patient is of moderate build, not in acute distress. VITAL SIGNS: Temperature 38, pulse 78, respiratory rate 16, blood pressure 147/72, and oxygen 98% on 2 liters. HEENT: No pallor, no icterus. Pupils equal, round, reactive to light. NECK: No JVD, no masses, no carotid bruits. CARDIOVASCULAR: S1, S2 heard, regular rate and rhythm, no murmur, no gallop. RESPIRATORY SYSTEM: Normal AP diameter. No accessory muscle use. No wheezing, no crackles. ABDOMEN: Soft, bowel sounds present. Nontender. No distention. CENTRAL NERVOUS SYSTEM: Cranial nerves II-XII grossly intact. Nonfocal. EXTREMITIES: No edema, no erythema. lower extremities. Sensation intact. Moves lower extremity MUSCULOSKELETAL: No spinal tenderness appreciated. LABS: WBC 29.8, hemoglobin 8.3, hematocrit 24.9 and platelets 75. PT 14.5, INR 1.5, APTT 29.7. Sodium 137, potassium 3.7, chloride 105, bicarbonate 23, BUN 13, creatinine 1.1, serum glucose 168. Point of care lactic acid 1.05, calcium 8.9, total bilirubin 0.5, AST 14, ALT 16, alkaline phosphatase is 47. Urinalysis negative. CT abdomen and pelvis irregular erosions centered on the T12-L1 disc. There is a possibility of osteomyelitis/ discitis 2 cm in ring enhancing lesion right anterior epidural space at level may reflect an epidural abscess. MRI of the lumbar spine is recommended. Gas and fluid containing right paracentral abnormality at L3, L4 disc herniation. No additional abscess, small pericardial effusion. A 4 cm lesion arising from left kidney possible renal cell carcinoma, This could be likely confirmed with renal ultrasound. Enlarged bilateral iliac lymph nodes, including a 5.4 and 3.4 cm left external iliac node. There is nonspecific adjacent infiltration and may be reactive however the size of the lymph node raises the possibility of a lymphoproliferative metastatic disease, moderate splenomegaly, suspected 4 cm splenic infarct. Apparent wall thickening of the common bile duct with adjacent infiltration. Correlate these findings with liver function test to exclude cholangitis. CXR. No acute cardiopulmonary findings, moderate cardiomegaly, possible hiatal hernia. EKG: Sinus tachycardia with PACs with a rate of 124. Nonspecific ST abnormalities seen. ASSESSMENT AND PLAN: 1. This is a 79-year-old who presents with sepsis, possible appendicitis and epidural abscess. 2. Sepsis with fever, tachycardia, elevated white count, thrombocytopenia, blood pressures are okay. Point of care lactic acid is okay. Currently, tachycardia improved. We will continue IV fluids and normal saline at 125 mL per hour IV. Vancomycin and IV Zosyn. CAT scan of the abdomen and pelvis is showing possible discitis or abscess at the level of T12, L1, disc and also L3-L4 level. The patient does not want to get MRI scan. Discussed with marybel Nichols with CAT scan. Emergency Room also spoke with the Spine Surgery. We will keep n.p.o. for now. Follow the blood cultures. We will follow the cultures. Close monitoring in the Intensive Care Unit. 3. History of myelodysplastic syndrome, follows with Dr. Rasheed at [place] [email or web address] The patient is on Vidaza shots which we will hold for now. Er physician spoke notified oncologist production support manager for patient's white count is elevated and some elevation blasts cells most likely from sepsis We will continue to monitor the labs and consult Hematology/Oncology for further recommendations based on the clinical response. Enlarged Iliac lymph nodes- await heme/onco inputs. 4. Anemia. Secondary to myelodysplastic syndrome. The patient to get transfusion every week. Transfusion whenever hemoglobin is less than 7.5, currently hemoglobin is 8.3, we will follow the labs. 5. Thrombocytopenia. Platelets 75, was normal last month, mostly likely from sepsis. We will follow the labs. Also elevated INR. We will follow the repeat INR. 5. Thickening of common bile duct. LFTs are fine.We will get a gallbladder ultrasound. 6. Small pericardial effusion. We will get echocardiogram. 7.A 4 cm lesion in the left lower kidney, possible renal cell carcinoma. We will get an ultrasound and based on findings can consult Urology. 7. History of diabetes. We will hold his metformin and glyburide . Will place him on Lantus 5 units and insulin sliding scale, currently n.p.o. We will monitor closely blood sugars. 8. History of benign prostatic hypertrophy with urinary retention status post Raya catheter in the Emergency Room. The patient on Flomax and Proscar. Continue Raya. We will consult Urology. 9. History of volume overload possible diastolic chf. recently seen by Cardiology.On lasix with kcl supplements which we are holding now. On fluids monitor for volume overload. cardiology recommended to get iv Lasix during prbc transfusion.Volume overload possibly from his frequent prbc transfusions 10. Hypertension. Continue his Toprol-XL with holding parameters. Hold amlodipine for sepsis. If blood pressure comes up, we will restart the amlodipine. 11. Hypothyroidism. Continue Synthroid. 12. Chronic pain. Continue his home pain medications. 13. Gastroesophageal reflux disease, on Prilosec. 14. Hyperlipidemia. Continue his Lipitor and fenofibrate. 15. Depression. Continue Zoloft. 16. Deep venous thrombosis prophylaxis, sequential compression devices for now as having thrombocytopenia. 17.Disposition: Closely monitor in the Intensive Care Unit. 18. Code status DNR/DNI. MTDD
[2019-01-29] MEDS: CLINDAMYCIN 900 MG in DEXTROSE 5% 50 ML IV SCH ×2 (04:33→10:47)
[2019-01-29] MEDS: CEFEPIME 2,000 MG in SYRINGE 7.5 ML IV SCH ×2 (04:34→12:39)
[2019-01-29 05:10] LABS: Albumin Level 2.2 gm/dl (3.4-5.0); BUN Creatinine Ratio 11.1 (10-20); C Reactive Protein 10.2 mg/dl (0-0.29); Calcium 7.7 mg/dl (8.5-10.1); Creatinine Clr Calc Pharmacy 83.4 ml/min; Est GFR (Non-African American) 82.9; Magnesium 1.5 mg/dl (1.8-2.4); Potassium 3.4 mmol/L (3.5-5.1)
[2019-01-29 05:14] LABS: Bilirubin Direct 0.2 mg/dl (0-0.2); Bilirubin,Total 0.5 mg/dl (0.2-1); Phosphorus 2.7 mg/dl (2.5-4.9); Total Protein 6.6 gm/dl (6.4-8.2)
[2019-01-29 05:21] LABS: Hematocrit (blood only) 20.9 % (42-52); Hemoglobin 6.9 g/dL (14.0-18.0); Mean Corpuscular Volume 86.7 fL (80-100); Nucleated RBC # (auto) 0.39 K/uL (0-0); Nucleated RBC % (auto) 1.7 %; Platelet Count 44 K/uL (130-400); RDW Coefficient of Variation 16.6 % (11.5-14.5); RDW Standard Deviation 52.6 fL (36.4-46.3); Red Blood Count 2.41 M/uL (4.7-6.1); White Blood Count 22.73 K/uL (4.8-10.8)
[2019-01-29 05:32] LABS: ALC (manual) 9.86 K/uL (1.2-3.4); Blast # (manual) 2.82 K/uL (0-0); Blast Cells % (manual) 12.4 %; Dohle Bodies 1+; Lymphocytes # (manual) 9.86 K/uL (1.2-3.4); Lymphocytes % (manual) 43.4 %; Monocytes % (manual) 8.8 %; Neutrophils % (manual) 35.4 %; Platelet Estimate Decreased (Normal)
[2019-01-29] MEDS ORDERED: SODIUM CHLORIDE 0.9% 250 ML IV PRN ×2 (06:15→07:50)
[2019-01-29] MEDS: MAGNESIUM SULFATE / D5W 1 GM/100 ML BAG IV SCH ×2 (06:19→08:17)
[2019-01-29] MEDS: POTASSIUM CHLORIDE / WTR 10 MEQ/100 ML PLCT IV SCH ×2 (06:19→08:17)
[2019-01-29] MEDS: INSULIN ASPART 100 UNITS/ML 3 ML PEN SC SCH ×3 (06:22→18:33)
[2019-01-29] MEDS ORDERED: LEVOTHYROXINE SODIUM 100 MCG TABLET PO SCH (06:30)
[2019-01-29 06:35] LABS: Estimated Average Glucose 166 mg/dl; Hemoglobin A1C 7.4 % (4.5-5.6)
--- NOTE | 2019-01-29 07:05 | Ultrasound Report ---
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 TECHNIQUE: Real-time grayscale and limited color Doppler ultrasound imaging of the abdomen was perfor med. COMPARISON: None. FINDINGS: Pancreas: Largely obscured due to overlying bowel gas. Liver: Normal echogenicity though mild heterogeneity of echotexture. The liver measures 22.7 cm in ma ximal sagittal dimension. No sonographic evidence of hepatic mass. Main portal vein patent with leopoldo l directional flow. Biliary: Mild central intrahepatic biliary ductal dilatation. Common bile duct measures up to 10 mm i n diameter. This likely represents a reservoir effect in the post cholecystectomy state. Gallbladder: Surgically absent. Spleen: A focal wedgelike region of heterogeneous hypoechogenicity measuring 2.2 x 3.0 x 2.8 cm is no juan, which likely correlates with the reported infarct. The spleen is enlarged with otherwise normal echogenicity and echotexture. Spleen measures 16.5 cm in maximal sagittal dimension. Trace perispleni c free fluid. Kidneys: Complex cystic lesion noted at the lower pole of the left kidney, measuring 2.2 x 3.4 x 2.1 cm. This correlates with the lesion on CT. This is largely anechoic and avascular. No color Doppler f low within the thin septations. Posterior acoustic enhancement. Right kidney measures 11.0 cm, and le ft kidney measures 13.0 cm. No hydronephrosis. Vasculature: Visualized portions of the IVC and abdominal aorta normal. Ascites: Trace perisplenic ascites. Other: Left pleural effusion noted. IMPRESSION: 1. Redemonstration of the focal splenic infarct. Trace associated reactive perisplenic free fluid. 2. Moderate splenomegaly. 3. Hepatomegaly. 4. 3.4 cm complex cystic lesion at the lower pole the left kidney, which correlates with the left re nal lesion on CT. This is favored to represent a minimally complex cyst (Bosniak 2). If there is need for further confirmation of the minimally complex cystic nature of this lesion, contrast enhanced re nal MRI could be obtained. 5. Left pleural effusion. Electronically signed by: Venancio Ponce M.D. 01/29/2019 7:04 AM
[2019-01-29] MEDS: GABAPENTIN 300 MG CAP PO SCH ×2 (08:26→14:46)
[2019-01-29 08:52] LABS: Reticulocyte % 0.6 % (0.5-2.0); Reticulocytes # < 0.02 10^6/uL (0.02-0.10)
[2019-01-29] MEDS ORDERED: METOPROLOL SUCC 50MG EXT REL TAB PO SCH ×2 (09:00→21:00)
[2019-01-29] MEDS ORDERED: CYANOCOBALAMIN 500 MCG TABLET (VITAMIN B-12) PO SCH (09:00)
[2019-01-29] MEDS ORDERED: BUDESONIDE AQ (RHINOCORT AQ) NASAL SPRAY 32 MCG SCH (09:00)
[2019-01-29] MEDS ORDERED: ATORVASTATIN 40 MG TAB PO SCH (09:00)
[2019-01-29] MEDS ORDERED: FENOFIBRATE NANOCRYSTALLIZED 145 MG TABLET PO SCH (09:00)
[2019-01-29] MEDS ORDERED: SERTRALINE HCL 100 MG TABLET PO SCH (09:00)
[2019-01-29] MEDS ORDERED: INSULIN GLARGINE SOLOSTAR 100 UNITS/ML 3 ML PEN SC SCH (09:00)
[2019-01-29] MEDS ORDERED: TAMSULOSIN HCL 0.4 MG CAP PO SCH (09:00)
[2019-01-29] MEDS ORDERED: FINASTERIDE 5 MG TAB PO SCH (09:00)
[2019-01-29] MEDS ORDERED: PANTOprazole 40 MG TAB PO SCH ×2 (09:00→21:00)
[2019-01-29] MEDS ORDERED: MAGNESIUM OXIDE 400 MG TAB PO SCH (09:00)
[2019-01-29] MEDS ORDERED: PROMETHAZINE HCL 12.5 MG in SODIUM CHLORIDE 0.9% 50 ML IV PRN (09:15)
[2019-01-29] MEDS ORDERED: OPTIRAY 320 125ml IV PRN (09:58)
[2019-01-29] MEDS ORDERED: VANCOMYCIN HCL 1,500 MG in SODIUM CHLORIDE 0.9% 500 ML IV SCH (10:00)
--- NOTE | 2019-01-29 10:28 | Ultrasound Report ---
US venous doppler LE CLINICAL HISTORY: 79 years-old Male presenting with assess for clot. TECHNIQUE: Real-time grayscale and color and spectral Doppler ultrasound imaging of the veins of the bilateral lower extremities was performed. Compression and augmentation were also utilized. COMPARISON: None. FINDINGS: RIGHT: Common femoral vein: Patent. Greater saphenous vein (superficial): Patent. Deep femoral vein: Patent. Femoral vein: Patent. Popliteal vein: Patent. Calf veins: Patent. LEFT: Common femoral vein: Patent. Greater saphenous vein (superficial): Patent. Deep femoral vein: Patent. Femoral vein: Patent. Popliteal vein: Patent. Calf veins: Patent. Other: None. IMPRESSION: No evidence of deep venous thrombosis. Electronically signed by: Venancio Ponce M.D. 01/29/2019 10:27 AM
--- NOTE | 2019-01-29 10:31 | CT Scan Report ---
CT ANGIOGRAM OF THE CHEST CLINICAL HISTORY: Shortness of breath, possible pulmonary embolism, weight loss. COMPARISON STUDY: No previous studies for comparison. TECHNIQUE: Following the IV administration of 118 mL of Optiray-320, CT angiogram of the thorax was p erformed from the thoracic inlet to the lung bases utilizing the pulmonary embolus protocol. Images a re reviewed in the axial, sagittal, and coronal planes. IV contrast was administered without complica tion. MIP imaging was performed. A dose lowering technique was utilized adhering to the principles o f ALARA. CT DOSE: 3309.71 mGy.cm FINDINGS: There are enlarged prevascular lymph nodes measuring up to 15 mm in short axis. There is an enlarged right paratracheal lymph node measuring 15 mm in short axis. There is an enlarged subcarinal lymph no de measuring 23 mm in short axis. There are no pathologically enlarged axillary lymph nodes. Hilar ly mph nodes are the upper limits of normal in size. 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 The main pul monary trunk is dilated measuring 4 cm. There is a small pericardial effusion. There is a small left pleural effusion. There are no pulmonary filling defects to indicate pulmonary embolism. The study is compromised due t o respiratory motion artifact and slightly suboptimal arterial opacification. There is a small left pleural effusion. Dependent left lower lobe airspace opacities are likely atele ctatic. There are additional scattered areas of atelectasis/scarring. Splenomegaly is suspected. There is a small hiatal hernia. IMPRESSION: 1. No evidence of acute pulmonary embolism given the technical limitations of study. 2. Small left pleural effusion and small pericardial effusion 3. Mediastinal lymphadenopathy 4. Possible splenomegaly Electronically signed by: Ronnie Carrillo M.D. 01/29/2019 10:30 AM
--- NOTE | 2019-01-29 10:36 | CT Scan Report ---
CT cervical spine w con CT DOSE: CLINICAL HISTORY: Neck pain weight loss. Discitis/abscess. TECHNIQUE: The patient was scanned in a dynamic helical fashion during the intravenous administration of 1 18 cc of Optiray 320. A dose lowering technique was utilized adhering to the principles of ALA RA. COMPARISON STUDY: None. FINDINGS: No acute fractures are visualized. There is 5.7 mm of anterior subluxation of C4 on C5. There is ivon ed disc space narrowing at the C5-C6 and C6-7 levels. There is a reversal of the normal cervical lord osis. There is multilevel facet joint arthropathy. No paraspinal masses are visualized on CT scanning . Endplate irregularity at C5-6 and C6-7 is statistically on a degenerative basis. IMPRESSION: 1. No CT evidence of discitis/abscess. It should be noted that MRI is more sensitive for this diagnos is. 2. Moderately advanced multilevel degenerative change. Endplate irregularity and narrowing the C5-C6 and C6-7 levels, statistically degenerative. 5.7 mm of anterior subluxation of C4 on C5. Electronically signed by: Ronnie Carrillo M.D. 01/29/2019 10:35 AM
--- NOTE | 2019-01-29 10:45 | CT Scan Report ---
CT thoracic spine w con CLINICAL HISTORY: 79 years-old Male presenting with discitis/abscess, shortness of breath, weight los s, concern for metastatic disease. TECHNIQUE: Multidetector CT of the thoracic spine was performed after the administration of intraveno us contrast. IV contrast: 118 mL of Optiray 320. One or more dose lowering techniques were used consi stent with the principles of ALARA (as low as reasonably achievable), including automatic exposure co ntrol, mA or kV adjustment to individual patient size, and/or use of iterative reconstruction. COMPARISON: 01/28/2019. CT DOSE (mGy.cm): The estimated cumulative dose is 3309.71. FINDINGS: Cardiovascular Rn topogram: Surgical clips project over the base of the neck. Cholecystectomy clips. Slightly exaggerated thoracic kyphosis. No focal compression deformity though there is minimal symmet emma height loss at T7 and T8 (no wedging deformity). Vertebral bodies otherwise maintain normal heigh t and alignment. Intervertebral disc heights preserved with the exception of T12-L1, where there are erosive endplate changes and sclerosis. Endplate concavity at T11 may be due to a Schmorl's node. Sma ll disc osteophyte complexes noted at several levels with soft tissue and osseous effacement of the s ned canal at T6-7. No osseous neural foraminal narrowing. No acute fracture or subluxation. The previously reported abnormality at the level of T12-L1 evident on CT of abdomen and pelvis from is not well depicted on the current exam. Suggestion is again made of an epidural collection along the posterior aspect of the cortex of T12 emanating from the T12-L1 disc space. Heterogeneity of medullary bone without convincing evidence of a well-defined lytic or blastic osseou s lesion. Extensive atelectasis greater in the left lung. Mild congestive changes suggested by interlobular sep gilbert thickening. Small left pleural effusion. Cardiomegaly may be present. IMPRESSION: 1. The abnormality at T12-L1 is not as well-defined. Did on the current exam as on prior CT from yes terday. Again, MRI would be recommended for a better evaluation of the extent of potential discitis o steomyelitis or other disease. Erosive endplate changes at T12-L1 along with the epidural abnormality could be compatible with discitis osteomyelitis with epidural abscess among other etiologies. 2. Mild multilevel degenerative changes with suspected disc bulge at T6-7. No significant neural for aminal narrowing. 3. Heterogeneity of medullary bone. No convincing destructive osseous lesion to suggest metastatic d isease. Electronically signed by: Venancio Ponce M.D. 01/29/2019 10:43 AM
--- NOTE | 2019-01-29 10:47 | CT Scan Report ---
CT lumbar spine w con HISTORY: 79 years-old Male discitis/abscess questioned discitis/osteomyelitis at T12-L1 described on CT abdomen and pelvis 01/28/2018 COMPARISON: CT abdomen and pelvis 01/18/2019, CT thoracic spine 01/29/2019 TECHNIQUE: Multiple axial CT images of the lumbar spine were obtained following the intravenous admin istration of 118 mL Optiray 320 IV contrast. A dose lowering technique was used consistent with the p rincipals of LIZETH. FINDINGS: Artifact from positioning of the patient's upper extremities limits the study. The previously describ ed probable epidural abscess at T12-L1 is not definitively seen on today's study. Heterogeneous enhan cement about the central canal T12-L1 is best seen on the sagittal images (image 51 of series 318) me asuring up to 1.3 cm in craniocaudal dimension. There is no additional abnormal enhancement identifie d. No drainable fluid collections. Moderate calcified plaque of the abdominal aorta. Endplate irregularity with sclerosis and lucent changes with severe disc space narrowing at T12-L1 re demonstrated. Additionally, there is severe disc space narrowing at L4-L5 and L5-S1. Vacuum disc phen omenon noted at L3-L4, L4-L5 and L5-S1 with moderate disc space narrowing at L3-L4. 5 mm retrolisthes is L3 on L4 is likely on a degenerative basis. Severe multilevel facet arthrosis. Moderate multilevel spondylitic spurring. No acute fracture notified. The imaged sacrum and iliac bones appear intact. 1 .6 cm sclerotic lesion of the right iliac wing is nonspecific. No definite aggressive features identi fied. Evaluation of the central canal and neuroforamina is better assessed by MRI. There is at least moderate central canal stenosis at L4-L5. Multilevel foraminal narrowing which appears severe bilater ally at L4-L5 and is at least moderate bilaterally at L3-L4 at L5-S1. IMPRESSION: 1. Limited exam secondary to streak artifact. 2. Endplate irregularity with erosive changes at T12-L1 redemonstrated , possibly reflective of disci tis/osteomyelitis. No acute fracture notified. 3.Ill-defined enhancement about the central canal at T12-L1 may correlate with the previously describ ed probable epidural abscess, better seen on CT study from 01/28/2019. Again, if the patient is medica lly able, correlation with MRI of the lumbar spine with and without contrast is recommended. 4. No acute fracture or subluxation identified. The above report was generated using voice recognition software. It may contain grammatical, syntax o r spelling errors. Electronically signed by: Román Rodriguez M.D. 01/29/2019 10:46 AM
--- NOTE | 2019-01-29 10:59 | Infectious Disease Consult ---
Date of Consultation January 29, 2019 Assessment & Plan (1) Spinal epidural abscess: continue abx for now, follow cultures. unclear if cultures done at [facility] last week, was on levaquin which may affect results. ortho eval pending, suspect he will need surgical intervention with multiple gas containing collections. will follow. continue supportive care. (2) Discitis: History of Present Illness Attending Physician: Corrina Grady, pt admitted with ongoing fevers, family at bedside, provide most of history. state pt had fever that begin 1-2 weeks ago with associated shakes and chills. was initially admitted to [facility], states she believes blood cultures were done there, he was d/c on 5 day course of levaquin. Per h&p he has been having urinary retention lately with plans to self cath, argueta currently in place. he appears uncomfortable on exam, c/o diffuse abd pain and low back pain which is somewhat better since admission. family states pt was having ongoing fevers at the time of d/c. was 106 on night at home, due to ongoing fevers, he came to ER last night. ct revealed T12/L1 discitis with 2cm fluid collection representing epidural abscess, also had gas filled collection at L3/L4 ESR 32, CRP 10, procalcitonin 0.64. wbc 29 in ER, now 22. tmax overnight 38.1. Started on cefepime, vanco and clinda in ER tolerating well. Blood cultures pending. ortho eval pending. Had CTA this am, negative for PE. UA negative in ER. denies recent uti. no cp, no sob, no andrews other than when h/h is low. states he gets labs done weekly at [facility] in [place]. Allergies Allergy/AdvReac Type Severity Reaction Status Date / Time No Known Allergies Allergy Verified 01/28/19 20:30 Home Medications Home Medications Medication Instructions Recorded Confirmed Type albuterol sulfate [ProAir HFA] 2 puff INHALATION Q4 PRN 01/28/19 01/28/19 H istory amitriptyline 25 mg PO HS 01/28/19 01/28/19 History amlodipine 10 mg PO DAILY 01/28/19 01/28/19 History atorvastatin 40 mg PO DAILY 01/28/19 01/28/19 History azacitidine [Vidaza] 75 mg SUBCUT UD 01/28/19 01/28/19 History budesonide 2 spray INTRANASAL QAM 01/28/19 01/28/19 History cyanocobalamin (vitamin B-12) 1,000 mcg PO DAILY 01/28/19 01/28/19 History [Vitamin B-12] cyclobenzaprine 10 mg PO TID PRN 01/28/19 01/28/19 History fenofibrate micronized 134 mg PO DAILY 01/28/19 01/28/19 History finasteride 5 mg PO DAILY 01/28/19 01/28/19 History furosemide [Lasix] 20 mg PO QAM 01/28/19 01/28/19 History gabapentin 300 mg PO TID 01/28/19 01/28/19 History glyburide 5 mg PO QDB 01/28/19 01/28/19 History levofloxacin 750 mg PO DAILY 01/28/19 01/28/19 History levothyroxine 100 mcg PO DAILY 01/28/19 01/28/19 History magnesium oxide 400 mg PO DAILY 01/28/19 01/28/19 History metformin 500 mg PO BIDM 01/28/19 01/28/19 History metoprolol succinate 50 mg PO HS 01/28/19 01/28/19 History metoprolol succinate 100 mg PO QAM 01/28/19 01/28/19 History omeprazole 20 mg PO TID 01/28/19 01/28/19 History ondansetron HCl [Zofran] 8 mg PO Q8 PRN 01/28/19 01/28/19 History oxycodone 5 mg PO Q6 PRN 01/28/19 01/28/19 History oxycodone 15 mg PO Q12H PRN 01/28/19 01/28/19 History potassium chloride 10 meq PO DAILY 01/28/19 01/28/19 History prochlorperazine maleate 10 mg PO TID PRN 01/28/19 01/28/19 History sennosides [senna] 17.2 mg PO QPM PRN 01/28/19 01/28/19 History sertraline 100 mg PO DAILY 01/28/19 01/28/19 History tamsulosin [Flomax] 0.8 mg PO DAILY 01/28/19 01/28/19 History Patient History Medical History Hyperlipidemia BPH (benign prostatic hyperplasia) Type II diabetes mellitus GERD (gastroesophageal reflux disease) Primary cancer of bone marrow Hyperthyroidism Social History Preferred Language: Scottish Communication Ability: Effective Fundraising Director Required: No Beliefs That Will Affect Care: None Current Living Situation: Family Other Information That Helps Us Care for You: No Feels Safe at Home: Yes Safety Concerns: Feels Safe At This Time Smoking Status: Unknown if ever smoked Hx Alcohol Use: No Hx Substance Use: No Review of Systems Review of Systems: All systems reviewed & are unremarkable except as noted in HPI & below Physical Exam Constitutional: WD/WN, vitals as above + ill appearing Eyes: PERRL, conjunctivae normal, anicteric sclerae ENMT: external ear and nose normal, oropharynx normal dry mm Neck: normal visual inspection Respiratory: normal respiratory effort, lungs clear to auscultation Auscultation: + diminished lung sounds Cardiovascular: RRR, no murmur, no edema Gastrointestinal (Abdomen): normal bowel sounds, soft, nontender, no hepatosplenomegaly Inspection/Auscultation: + abdomen distended Percussion/Palpation: abdomen soft; abdomen nontender and no guarding Musculoskeletal: no cyanosis or clubbing, extremities motor strength 5/5 able to move all extremities Skin: no rashes, warm and dry Psychiatric: A+Ox3, euthymic affect appears uncomfortable Results & Data Vital Signs (Past 12 Hours) Vital Signs Temp Pulse Pulse Resp BP BP Pulse Ox 01/29/19 10:30 37.3 C 108 H 22 140/101 H 95 01/29/19 08:00 112 H 100 01/29/19 07:49 117 H 150/99 H 98 01/29/19 07:02 37 C 108 H 98 01/29/19 07:00 112 H 162/108 H 98 01/29/19 06:00 38.1 C H 107 H 22 145/94 H 98 01/29/19 05:00 38.0 C H 115 H 20 144/93 H 96 01/29/19 04:00 37.8 C H 108 H 24 122/59 L 97 01/29/19 03:00 37.7 C H 106 H 22 135/80 94 01/29/19 02:21 37.5 C 119 H 26 H 131/107 H 95 01/29/19 01:20 37.4 C 116 H 26 H 159/71 H 95 01/29/19 01:18 37.7 C H 121 H 22 118/97 99 01/29/19 01:10 37.2 C 110 H 20 127/72 96 01/28/19 23:00 78 16 147/72 H 98 (1) Discitis Spinal region: unspecified Qualified Code(s): M46.40 - Discitis, unspecified, site unspecified
[2019-01-29] MEDS ORDERED: PHYTONADIONE 5 MG TAB PO ONE (11:15)
[2019-01-29 11:16] LABS: Fibrinogen 448 mg/dl (184-400)
[2019-01-29 11:34] LABS: Troponin I 0.017 ng/ml (0-0.045)
[2019-01-29] MEDS ORDERED: Nursing to Pharmacy Communication ONE (13:09)
[2019-01-29 13:26] LABS: Hematocrit (blood only) 22.2 % (42-52); Hemoglobin 7.6 g/dL (14.0-18.0)
[2019-01-29] MEDS ORDERED: NORMOSOL-R 1,000 ML IV SCH (13:30)
--- NOTE | 2019-01-29 15:11 | Hospitalist Progress Note ---
Date of Service January 29, 2019 Results & Data Vital Signs (Past 12 Hours) Vital Signs Temp Pulse Resp BP Pulse Ox 01/29/19 12:50 98 H 119/74 95 01/29/19 12:45 101 H 94 01/29/19 12:31 100 H 93/57 L 94 01/29/19 12:30 96 H 94 01/29/19 12:16 98 H 24 92/56 L 93 01/29/19 12:15 36.8 C 98 H 93 01/29/19 12:01 100 H 105/52 L 92 01/29/19 12:00 103 H 92 01/29/19 11:46 102 H 26 H 91 01/29/19 11:45 37 C 103 H 113/62 91 01/29/19 11:31 105 H 90 01/29/19 11:30 37.6 C H 105 H 84/61 L 90 01/29/19 11:16 110 H 92/64 L 92 01/29/19 11:15 105 H 92 01/29/19 11:01 37.6 C H 117 H 99/65 L 94 01/29/19 10:46 109 H 131/72 93 01/29/19 10:40 109 H 95 01/29/19 10:33 109 H 140/101 H 96 01/29/19 10:30 37.3 C 108 H 22 140/101 H 95 01/29/19 10:24 108 H 154/66 H 93 01/29/19 10:22 118 H 96 01/29/19 08:00 112 H 100 01/29/19 07:49 117 H 150/99 H 98 01/29/19 07:02 37 C 108 H 98 01/29/19 07:00 112 H 162/108 H 98 01/29/19 06:00 38.1 C H 107 H 22 145/94 H 98 01/29/19 05:00 38.0 C H 115 H 20 144/93 H 96 01/29/19 04:00 37.8 C H 108 H 24 122/59 L 97
--- NOTE | 2019-01-29 16:35 | Discharge Summary ---
Date of Service January 29, 2019 Admission HPI Per Admitting Provider HISTORY OF PRESENT ILLNESS: This is a 79-year-old male with past medical history significant for diabetes type 2, hyperlipidemia, hypothyroidism, obstructive sleep apnea, ascending aortic dilatation, hypertension, GERD, BPH with urinary retention, depression, myelodysplastic syndrome, presents with fever. The patient has myelodysplastic syndrome diagnosed around a couple of years ago and follows with Dr. Rasheed at [facility] in [facility], currently getting Vidaza shots 4 times a week 1 an 3 times week and couple of weeks off. Also checks cbc couple of times a week and is almost getting the prbc transfusion every Tuesday. Gets transfused for hemoglobin less than 7.5. Got transfused last Tuesday. Last Tuesday he went to [facility] with fever and got admitted and next day got discharged on Levaquin. Was given 5 days of Levaquin and finished the course, but is still having high fevers at home. He was profusely sweating, feeling weak and tired. Generally walks with a walker, but is not ambulating much. Appetite is down. Complaining of right hip pain, so he was brought here. His white count is elevated to 28,[address] of abdomen and pelvis is showing possible discitis or small epidural abscess at T12 and L1 and L3 and L4 levels. His lactic acid is fine and the ER physician talked to the oncologist secretary to board of commissioners and thought elevated white count and blast cells was most likely from sepsis and infection, and can be monitored here. Spine Surgery has also been notified. The patient is resting comfortably, currently hemodynamics are okay. Denies any headache, no blurred vision, no earache, no sore throat, no difficulty swallowing. No cough, no nausea, no chest pain. He is somewhat short of breath, no nausea. He is also having issues with urinary retention. There is a plan to teach him about self catheterization. Raya was placed in the ER. His abdominal discomfort has improved since placed on Raya. Denies any hematuria. He moves his bowels daily. No blood in the stools or black stools. No swelling in the legs. No rash. Admission Exam Per Admitting Provider PHYSICAL EXAMINATION: GENERAL: The patient is of moderate build, not in acute distress. VITAL SIGNS: Temperature 38, pulse 78, respiratory rate 16, blood pressure 147/72, and oxygen 98% on 2 liters. HEENT: No pallor, no icterus. Pupils equal, round, reactive to light. NECK: No JVD, no masses, no carotid bruits. CARDIOVASCULAR: S1, S2 heard, regular rate and rhythm, no murmur, no gallop. RESPIRATORY SYSTEM: Normal AP diameter. No accessory muscle use. No wheezing, no crackles. ABDOMEN: Soft, bowel sounds present. Nontender. No distention. CENTRAL NERVOUS SYSTEM: Cranial nerves II-XII grossly intact. Nonfocal. EXTREMITIES: No edema, no erythema. lower extremities. Sensation intact. Moves lower extremity MUSCULOSKELETAL: No spinal tenderness appreciated. Principal Diagnosis sepsis 2/2 discitis/osteomyelitis and probable epidural abscess MDS thrombocytopenia Discharge Data Allergies Allergy/AdvReac Type Severity Reaction Status Date / Time No Known Allergies Allergy Verified 01/28/19 20:30 Consultations 01/28/19 22:34 ED Decision to Admit Stat 01/29/19 01:18 Consult Case Management - Discharge Planning Routine Consult Case Management - Discharge Planning Routine Consult Infectious Diseases Routine 01/29/19 08:00 Consult Hematology Routine Consult Mobile Lounge Driver Or Operator Routine 01/29/19 13:20 Consult Orthopedic Surgery Routine 01/29/19 14:45 Burn CD for patient Routine 01/29/19 15:05 Consult Health Information Management Stat Ordered Studies 01/28/19 20:31 CT abd pelvis IV con only Stat 01/28/19 23:37 CT cervical spine w con Urgent CT lumbar spine w con Urgent CT thoracic spine w con Urgent 01/29/19 01:18 US abdomen complete Urgent 01/29/19 08:12 US venous doppler LE BI Routine 01/29/19 09:38 CT angio chest PE protocol Stat Hospital Course (1) Myelodysplastic syndrome: (2) Sepsis: (3) Spinal epidural abscess: (4) Discitis: (5) Type II diabetes mellitus: 79-year-old man with myelodysplastic syndrome on treatment presents with fever persistent despite a Levaquin course for the past 5 days. He had prev iously been seen admitted to [facility] undergoing treatment for sepsis and discharged on Levaquin. Blood cultures from 01/22 are negative at final reading. His fever was reported to be 106 at home. He was septic on arrival to the [facility] ER and reported abdominal pain. Work-up included a CT abdomen pelvis which revealed endplate irregularity with erosive changes at T12-L1 suggestive of discitis/osteomyelitis. Additionally, a 2 cm rim-enhancing fluid collection within the right anterior epidural space at this level reflected a probable epidural abscess. Moreover, a right paracentral abnormality at the L3-L4 level containing gas and fluid may also reflect a disc herniation or additional abscess. Severe multilevel degenerative changes within the lumbar spine were noted. There was a 4 cm lesion arising the lower pole the left kidney suggestive of renal cell carcinoma. Further work-up with a renal ultrasound was recommended. Enlarged bilateral iliac lymph nodes including a 5.4 x 3.5 cm left external iliac node were seen. These were nonspecific given adjacent infiltration and may be reactive however the size of the lymph node reflect a possible lymphoproliferative process or metastatic disease. Moderate splenomegaly was noted with a suspected 4 cm splenic infarct. A Raya catheter was placed for urination issues. His white blood cell count was 28,000. He was admitted to the ICU on broad-spectrum antibiotics including vancomycin and Zosyn. IV fluids were continued. The patient refused an MRI. Workup for DVT/PE was performed and negative. Spine surgery was consulted and the patient was kept n.p.o. until evaluation the following day. Platelets were low and dropped to 44, and with a history of myelodysplastic syndrome and the probable need for support with blood products, it was thought safer to discharge him to [facility] for further work-up and treatment, especially if surgical intervention would be needed. While admitted an echocardiogram was performed revealing ejection fraction 55 to 60% with grade 2 diastolic dysfunction. A trivial circumferential pericardial effusion was seen with no evidence of cardiac tamponade. At time of discharge, he appeared weak clinically. He was pale and weak and could not sit up on his own in bed. He reported a low appetite and some nonspecific abdominal discomfort and chronic right hip discomfort. He denied any back pain. T-max overnight was 39.2 C at 7 PM. Cardiac exam was normal. Lungs were clear to auscultation. There was no paraspinal tenderness to palpation and no spinous process tenderness to palpation on back exam. He was moving extremities equally although there was a limited exam secondary to weakness and malaise. He was transferred in serious condition to [facility] for further work-up and treatment. Family was at the bedside and verbalized understanding of the plan. Total Time Total Time Spent Total Time Spent (In Minutes): 60 Total Time Includes: Examination of the Patient, Discharge Planning, Medication Reconciliation and Communication With Other Providers Discharge Plan Discharge Items Patient Disposition: Transfer Acute Care Hospital Reason For Visit: FEVER Discharge Diagnosis: sepsis 2/2 discitis/osteomyelitis and probable epidural abscess MDS thrombocytopenia Condition: Serious Discharge Goals: Therapeutic intervention Activity: As commented below Activity Comment: per receiving facility Non-emergency contact: Primary Care Provider Call non-emergency contact if: you have any medication questions, your symptoms worsen, your pain is not controlled and you have a fever Follow-up/Referrals: Nayeli Santillan DO [Primary Care Provider] - Diet: Carb Consistent or DM2 Addtl Provider Instructions: You are being transferred to [facility] in [place], [place] for further workup and treatment. It is recommended that you follow-up with your primary care physician upon discharge from the hospital. It was a pleasure taking care of you! Please call if you have any questions or problems. You can reach a [facility] hospitalist on duty at [facility] 24 hours a day by calling [phone]. Take care of yourself. Corrina Grady DO [facility] Prescriptions: Continued cyclobenzaprine 10 mg Tablet 10 mg PO TID PRN (Reason: Muscle Spasm) RF: 0 budesonide 32 mcg/actuation [place],Non-Aerosol 2 spray INTRANASAL QAM RF: 0 atorvastatin 40 mg Tablet 40 mg PO DAILY RF: 0 metformin 500 mg Tablet 500 mg PO BIDM RF: 0 cyanocobalamin (vitamin B-12) [Vitamin B-12] 1,000 mcg Tablet Extended Release 1,000 mcg PO DAILY RF: 0 sennosides [senna] 8.6 mg Tablet 17.2 mg PO QPM PRN (Reason: Constipation) RF: 0 potassium chloride 10 mEq Capsule, Extended Release 10 meq PO DAILY RF: 0 glyburide 5 mg Tablet 5 mg PO QDB RF: 0 metoprolol succinate 50 mg Tablet Extended Release 24 Hr 50 mg PO HS RF: 0 metoprolol succinate 50 mg Tablet Extended Release 24 Hr 100 mg PO QAM RF: 0 ondansetron HCl [Zofran] 8 mg Tablet 8 mg PO Q8 PRN (Reason: Nausea And Vomiting) RF: 0 sertraline 100 mg Tablet 100 mg PO DAILY RF: 0 prochlorperazine maleate 10 mg Tablet 10 mg PO TID PRN (Reason: Nausea And Vomiting) RF: 0 fenofibrate micronized 134 mg Capsule 134 mg PO DAILY RF: 0 levothyroxine 100 mcg Tablet 100 mcg PO DAILY RF: 0 amitriptyline 25 mg Tablet 25 mg PO HS RF: 0 magnesium oxide 400 mg (241.3 mg magnesium) Tablet 400 mg PO DAILY RF: 0 tamsulosin [Flomax] 0.4 mg Capsule 0.8 mg PO DAILY RF: 0 amlodipine 10 mg Tablet 10 mg PO DAILY RF: 0 gabapentin 300 mg Capsule 300 mg PO TID RF: 0 furosemide [Lasix] 20 mg Tablet 20 mg PO QAM RF: 0 albuterol sulfate [ProAir HFA] 90 mcg/actuation Hfa Aerosol Inhaler 2 puff INHALATION Q4 PRN (Reason: Wheezing) RF: 0 finasteride 5 mg Tablet 5 mg PO DAILY RF: 0 oxycodone 5 mg Tablet 5 mg PO Q6 PRN (Reason: Pain) RF: 0 azacitidine [Vidaza] 100 mg Recon Soln 75 mg SUBCUT UD RF: 0 omeprazole 20 mg Tablet,Delayed Release (Dr/Ec) 20 mg PO TID RF: 0 oxycodone 15 mg Tablet,Oral Only,Ext.Rel.12 Hr 15 mg PO Q12H PRN (Reason: Pain) RF: 0 Discontinued levofloxacin 750 mg tablet 750 mg PO DAILY RF: 0 Stand-Alone Forms: [facility] Discharge Orders: Discharge Order (Routine); Ordered 01/29/19 Ordered By: Corrina Grady Admission Data Admit Date/Time: 01/29/19 00:51 Attending Provider: Corrina Grady Admit Provider: Albert Penn Primary Care Provider: Nayeli Santillan Other Providers: Albert Penn ; Juwan Coulter ; Vianey Roche ; Jd Doe ; Suri Clay ; Quoc Diaz ; Calixto Acuna Service: Intensive Care Unit
--- NOTE | 2019-01-29 17:35 | Oncology Consultation ---
Date of Consultation January 29, 2019 Assessment & Plan (1) Myelodysplastic syndrome: supportive care Transfuse platelets if bleed. Is surgery is considered for spine than maintain platelets count around 100,000 Present on Admission?: Yes (2) Sepsis: As per primary team on antibiotic Present on Admission?: Yes (3) Spinal epidural abscess: Patinet will be transfer to [facility] for further management Present on Admission?: Yes (4) Discitis: As above Present on Admission?: Yes History of Present Illness Reason for Consultation: History of MDS admited with fever and thrombocytopenia Attending Physician: Corrina Grady, History of Present Illness Patient is a 79-year-old male with history significant for MDS which he [place] [facility] [place] is currently being treated with Vidaza and Aranesp therapy, not undergoing chemo. Additional past medical history includes chronic back pain, diabetes type 2, hypertension, hyperlipidemia, GERD, BPH. Patient initially presented to the emergency department with complaints of fevers and chills for several days and associated nausea and vomiting. He also complained of abdominal pain that started yesterday. In the ED he was tachycardic and febrile. CBC showed leukocytosis 29,000. CT abdomen showed possible spinal abscess with discitis and osteomyelitis. Blood cultures were obtained and started on antibiotic therapy. Patient is following Dr Rasheed at [facility] follows in [place], currently getting Vidaza shots 4 times a week 1 an 3 times 2nd week and couple of weeks off.Also checks cbc couple of times a week and is almost getting the prbc transfusion every Tuesday. Gets transfused for hemoglobin less than 7.5. Got transfused last Tuesday. 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 Last Tuesday he went to [facility] with fever and got admitted and next day got discharged on Levaquin. Was given 5 days of Levaquin and finished the course, but is still having high fevers at home. He was profusely sweating, feeling weak and tired. Generally walks with a walker, but is not ambulating much. Appetite is down. He was admitted to the ICU on broad-spectrum antibiotics including vancomycin and Zosyn. IV fluids were continued. The patient refused an MRI. Workup for DVT/PE was performed and negative. Spine surgery was consulted and the patient was kept n.p.o. until evaluation the following day. Platelets were low and dropped to 44, and with a history of myelodysplastic syndrome and the probable need for support with blood products, it was thought safer to discharge him to [facility] for further work-up and treatment, especially if surgical intervention would be needed Follwing was the finding on CT:IMPRESSION: 1. Endplate irregularity with erosions centered on the T12-L1 disc. This raises the possibility of osteomyelitis/discitis. 2 cm rim-enhancing fluid collection within the right anterior epidural space at this level may reflect an epidural abscess. An MRI of the lumbar spine with and without contrast to include the lower thoracic spine is recommended. 2. Gas and fluid containing right paracentral abnormality at the L3-L4 level which may reflect a disc herniation or additional abscess. This can be assessed at time of MRI. Severe multilevel degenerative changes within the lumbar spine. 3. Small pericardial effusion. Trace left pleural effusion. 4. 4 cm lesion arising from the lower pole of the left kidney suggestive of renal cell carcinoma. A hyperdense cyst could appear similar but is considered less likely. This could likely be confirmed with renal ultrasound. 5. Enlarged bilateral iliac lymph nodes, including a 5.4 x 3.5 cm left external iliac node. These are nonspecific given adjacent infiltration and may be reactive however the size of this lymph node raises the possibility of a lymphoproliferative process or metastatic disease. 6. 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 Blood culture pending. Plat counts were 44k, 12% fozia Allergies Allergy/AdvReac Type Severity Reaction Status Date / Time No Known Allergies Allergy Verified 01/28/19 20:30 Home Medications Home Medications Medication Instructions Recorded Confirmed Type albuterol sulfate [ProAir HFA] 2 puff INHALATION Q4 PRN 01/28/19 01/28/19 History amitriptyline 25 mg PO HS 01/28/19 01/28/19 History amlodipine 10 mg PO DAILY 01/28/19 01/28/19 History atorvastatin 40 mg PO DAILY 01/28/19 01/28/19 History azacitidine [Vidaza] 75 mg SUBCUT UD 01/28/19 01/28/19 History budesonide 2 spray INTRANASAL QAM 01/28/19 01/28/19 History cyanocobalamin (vitamin B-12) 1,000 mcg PO DAILY 01/28/19 01/28/19 History [Vitamin B-12] cyclobenzaprine 10 mg PO TID PRN 01/28/19 01/28/19 History fenofibrate micronized 134 mg PO DAILY 01/28/19 01/28/19 History finasteride 5 mg PO DAILY 01/28/19 01/28/19 History furosemide [Lasix] 20 mg PO QAM 01/28/19 01/28/19 History gabapentin 300 mg PO TID 01/28/19 01/28/19 History glyburide 5 mg PO QDB 01/28/19 01/28/19 History levofloxacin 750 mg PO DAILY 01/28/19 01/28/19 History levothyroxine 100 mcg PO DAILY 01/28/19 01/28/19 History magnesium oxide 400 mg PO DAILY 01/28/19 01/28/19 History metformin 500 mg PO BIDM 01/28/19 01/28/19 History metoprolol succinate 50 mg PO HS 01/28/19 01/28/19 History metoprolol succinate 100 mg PO QAM 01/28/19 01/28/19 History omeprazole 20 mg PO TID 01/28/19 01/28/19 History ondansetron HCl [Zofran] 8 mg PO Q8 PRN 01/28/19 01/28/19 History oxycodone 5 mg PO Q6 PRN 01/28/19 01/28/19 History oxycodone 15 mg PO Q12H PRN 01/28/19 01/28/19 History potassium chloride 10 meq PO DAILY 01/28/19 01/28/19 History prochlorperazine maleate 10 mg PO TID PRN 01/28/19 01/28/19 History sennosides [senna] 17.2 mg PO QPM PRN 01/28/19 01/28/19 History sertraline 100 mg PO DAILY 01/28/19 01/28/19 History tamsulosin [Flomax] 0.8 mg PO DAILY 01/28/19 01/28/19 History Patient History Medical History Hyperlipidemia BPH (benign prostatic hyperplasia) Type II diabetes mellitus GERD (gastroesophageal reflux disease) Primary cancer of bone marrow Hyperthyroidism Social History Preferred Language: Guinean Communication Ability: Effective Ict Support Technicians Required: No Beliefs That Will Affect Care: None Current Living Situation: Family Other Information That Helps Us Care for You: No Feels Safe at Home: Yes Safety Concerns: Feels Safe At This Time Smoking Status: Unknown if ever smoked Hx Alcohol Use: No Hx Substance Use: No Review of Systems Review of Systems: All systems reviewed & are unremarkable except as noted in HPI & below Denies any headache, dizziness, Visual Problem No chest pain,palpitation No abdominal pain, abdominal distention, no bleeding or easy bruising Physical Exam Physical Exam: PHYSICAL EXAMINATION: GENERAL: The patient is of moderate build, not in acute distress. VITAL SIGNS: Temperature 37, pulse 78, respiratory rate 16, blood pressure 147/72, HEENT: No pallor, no icterus. Pupils equal, round, reactive to light. NECK: No JVD, no masses, no carotid bruits. CARDIOVASCULAR: S1, S2 heard, regular rate and rhythm, no murmur, no gallop. RESPIRATORY SYSTEM: Normal AP diameter. No accessory muscle use. No wheezing, no crackles. ABDOMEN: Soft, bowel sounds present. Nontender. No distention. CENTRAL NERVOUS SYSTEM: Cranial nerves II-XII grossly intact. Nonfocal. EXTREMITIES: No edema, no erythema. lower extremities. Sensation intact. Moves lower extremity MUSCULOSKELETAL: No spinal tenderness appreciated. Results & Data Vital Signs (Past 12 Hours) Vital Signs Temp Pulse Resp BP Pulse Ox 01/29/19 15:01 94 H 126/64 92 01/29/19 15:00 98 H 96 01/29/19 14:01 98 H 143/82 H 96 01/29/19 14:00 106 H 97 01/29/19 13:01 98 H 130/87 96 01/29/19 13:00 99 H 95 01/29/19 12:50 98 H 119/74 95 01/29/19 12:45 101 H 94 01/29/19 12:31 100 H 93/57 L 94 01/29/19 12:30 96 H 94 01/29/19 12:17 97 H 94 01/29/19 12:16 98 H 24 92/56 L 93 01/29/19 12:15 36.8 C 98 H 93 01/29/19 12:01 100 H 105/52 L 92 01/29/19 12:00 103 H 92 01/29/19 11:46 102 H 26 H 91 01/29/19 11:45 37 C 103 H 113/62 91 01/29/19 11:31 105 H 90 01/29/19 11:30 37.6 C H 105 H 84/61 L 90 01/29/19 11:16 110 H 92/64 L 92 01/29/19 11:15 105 H 92 01/29/19 11:01 37.6 C H 117 H 99/65 L 94 01/29/19 10:46 109 H 131/72 93 01/29/19 10:40 109 H 95 01/29/19 10:33 109 H 140/101 H 96 01/29/19 10:30 37.3 C 108 H 22 140/101 H 95 01/29/19 10:24 108 H 154/66 H 93 01/29/19 10:22 118 H 96 01/29/19 08:00 112 H 100 01/29/19 07:49 117 H 150/99 H 98 01/29/19 07:02 37 C 108 H 98 01/29/19 07:00 112 H 162/108 H 98 01/29/19 06:00 38.1 C H 107 H 22 145/94 H 98 (1) Sepsis Sepsis type: sepsis due to unspecified organism Qualified Code(s): A41.9 - Sepsis, unspecified organism (2) Discitis Spinal region: unspecified Qualified Code(s): M46.40 - Discitis, unspecified, site unspecified
--- NOTE | 2019-01-29 20:20 | Consultation Report ---
DATE OF CONSULTATION: 01/29/2019 CHIEF COMPLAINT: Orthopedic spine consultation for discitis, lumbar spine at T12-L1. Most concern actually the L3-L4 levels of lumbar spine. I had the opportunity to see Tariq in consultation on 01/29/2019 at approximately 4:00 in the afternoon. He is in ICU at [facility] with apparent diskitis of the lumbar spine which definitely is inflamed, I am not actually sure it is infected, but that certainly is a high probability. PAST MEDICAL HISTORY: Significant for obesity, diabetes 2, hypothyroidism, sleep apnea. He has GERD, hypertension, depression. He also has a myelodysplastic syndrome which leads to fevers and high white count as well. The family also states with any type of surgery, major or minor, he has a significant amount of bleeding and he needs transfusions quite frequently. According to the chart he gets transfusions I believe weekly. He generally walks with a walker. He is not ambulating now. His appetite is down. He complained of pain. He has high white count. EXAMINATION: When I am seeing the patient here in ICU he is actually pretty comfortable. He is alert and oriented. He knows exactly where he is. He does not appear septic overall at this moment. ALLERGIES: Negative. SURGICAL HISTORY: Bilateral knee replacements, colonoscopy, thyroid surgery, lumbar spine surgery in 1990, and a TURP procedure. MEDICATIONS: Listed about 20 medications, I am holding off to be concise on dictating these. FAMILY HISTORY: Diabetes and hypertension. and lives with his . SOCIAL HISTORY: Former smoker, no alcohol, no drug use. OBJECTIVE: GENERAL: He is alert, oriented in no terrible distress. VITAL SIGNS: Stable. Temperature is elevated at 38, blood pressure 147/72. HEENT: Normal. CARDIAC: Normal S1, S2, no S3. ABDOMEN: Soft, nontender. NEUROLOGIC: Cranial nerves are intact. Neurologically intact. No significant spinal tenderness. LABORATORY DATA: White cell count 29.8, hemoglobin down to 7.6, hematocrit 24, platelets of only 75. EKG showed a heart rate about 112. His CT scan was evaluated by myself. I looked at the radiologist's interpretation as well. He has a diskitis at T12-L1; also L3-L4. There is a possibility of an epidural abscess as well. It was hard for me to read the MRI scan, I was going a lot of what the radiologist reported. Additional comorbidities include his myelodysplastic syndrome, his anemia, thrombocytopenia, pericardial effusion, history of diabetes, obesity, currently hypertension as well. PLAN: At this point in time, I would treat this problem medically not surgically. I have had cases like this in my career where I have gone in with surgery with the patient not being stabilized and I have had some catastrophic results. I am truly gun shy on this case and would be reluctant to offer him surgery particularly here at [facility]. I recommend and I spoke with some other physicians on this with him to be transferred to a tertiary care system. He needs significant care with his overall comorbidities. He may require surgical intervention. I would prefer a team approach. He will need an approach surgeon. He might need a neurosurgeon, an orthopedic surgeon all at once to try to stabilize his spine. JOHNNY
[2019-01-29] MEDS ORDERED: AMITRIPTYLINE HCL 25 MG TAB PO SCH (21:00)
[2019-01-30] MEDS ORDERED: AMLODIPINE BESYLATE 5 MG TAB PO SCH (09:00)
[2019-01-30] MEDS ORDERED: VANCOMYCIN TROUGH ONE (09:30)
== END 2019-01-29 19:49 | disposition short-term general hospital (02) | DRG 871 ==
LOC: ED 18:57 → 1E 01-29 00:51 → SUATTDRO 01-29 00:51 → 1E 01-29 01:10